=== PATIENT | female | born 1960 | race African-American/Black ===

== ENCOUNTER 2016-05-19 12:59 | Inpatient (IN) | payer MEDICAID, OTHER ==
[~2016-05-19] VITALS: Ht 160 cm; Wt 109.8 kg
[~2016-05-19 12:59] MED LIST: ALLOPURINOL100 M1 ORAL; AMOX TR-K CLV1 EAC2 ORAL; ASPIR 8181 MG ORAL; AZITHROMYCIN250 MG ORAL; CARISOPRODOL350 MG ORAL; HYDROCHLOROTHIA25 MG ORAL; OMEPRAZOLE40 M1 ORAL; PHENERGAN6.25 MG/5 ORAL; POTASSIUM CHLOR8 ME3 PO; REGLAN10 MG PO; VICODIN 5-5001 EACH PO; ZANTAC150 MG ORAL
[2016-05-19] MEDS ORDERED: ZYPREXA2.5 MG ORAL (13:14)
[2016-05-19] MEDS ORDERED: HYDROXYZINE HCL10 M1 PO (13:16)
[2016-05-19 13:20] VITALS: BP 125/92
[2016-05-19] MEDS ORDERED: Albuterol ud Inhalation HHN ONE (13:30)
[2016-05-19] MEDS ORDERED: Norco 10mg/325mg tab ORAL ONE (13:30)
--- NOTE | 2016-05-19 13:34 | Emergency Room Report ---
History of Present Illness General Chief Complaint: Dyspnea/Respdistress Source: Patient Present Illness HPI Patient present with a few different complaints Main complaint was of cough and congestion Patient feel that she has been wheezing over the past several days Complaining of increased swelling in both of her feet Denies any headache or visual changes Denies any chest pain at this time She states that she takes aspirin and nitroglycerin at home when necessary Patient also complains of a chronic low back pain However complains of increased foul smell of her urine as well Allergies: Coded Allergies: No Known Allergies (Verified , 12/23/09) Patient History Past Medical History: see triage record Pertinent Family History: none Reviewed Nursing Documentation: PMH: Agreed, PSxH: Agreed Nursing Documentation-PMH Past Medical History: No History, Except For Hx Cardiac Problems: Yes - heart problem, angina, Gout Hx Hypertension: Yes Hx Gastrointestinal Problems: Yes - Hep c Review of Systems All Other Systems: negative except mentioned in HPI Physical Exam Vital Signs Date Time Temp Pulse Resp B/P Pulse Ox O2 Delivery O2 Flow Rate FiO2 05/19/16 13:08 98.4 95 20 163/95 94 Room Air Sp02 EP Interpretation: reviewed, normal General Appearance: no apparent distress Head: normocephalic, atraumatic Eyes: bilateral eye EOMI, bilateral eye PERRL ENT: hearing grossly normal, normal pharynx, TMs + canals normal, uvula midline Neck: full range of motion, supple, no meningismus, no bony tend Respiratory: no respiratory distress, no retraction, no accessory muscle use, crackles - And wheezing in both lower lobes Cardiovascular #1: normal peripheral pulses, regular rate, rhythm, no gallop, no JVD, no murmur Gastrointestinal: normal bowel sounds, non tender, soft, no mass, no organomegaly, non-distended, no guarding, no hernia, no pulsatile mass, no rebound Genitourinary: no CVA tenderness Musculoskeletal: normal inspection Neurologic: oriented x3, responsive, lace finisher III-XII nml as tested, motor strength/ tone normal, sensory intact Psychiatric: mood/affect normal Skin: warm/dry, palpation normal, other - 2/4 pitting Edema in both lower extremities Lymphatic: normal inspection, no adenopathy Medical Decision Making Last Vital Signs Date Time Temp Pulse Resp B/P Pulse Ox O2 Delivery O2 Flow Rate FiO2 05/19/16 13:08 98.4 95 20 163/95 94 Room Air Reevaluation Impression Patient continues to do better in the ER, case was signed out to my oncoming physician for final dispo LIGIA HERNANDEZ D.O. May 19, 2016 13:34
[2016-05-19 13:58] LABS: MEAN CORPUSCULAR HEMOGLOBIN 19.7 PG (27.0-31.0); MEAN CORPUSCULAR HGB CONC 28.6 G/DL (32.0-36.0); MEAN CORPUSCULAR VOLUME 69 FL (80-99); MEAN PLATELET VOLUME 5.4 FL (6.5-10.1); PLATELET COUNT 415 K/UL (150-450); RED BLOOD COUNT 4.84 M/UL (4.20-5.40); RED CELL DISTRIBUTION WIDTH 17.4 % (11.6-14.8); WHITE BLOOD COUNT 5.8 K/UL (4.8-10.8)
[2016-05-19 14:13] LABS: TROPONIN I < 0.30 ng/mL (<=0.30)
[2016-05-19 14:14] LABS: ALANINE AMINOTRANSFERASE 23 U/L (3-33); ANION GAP 16 (5-15); ASPARTATE AMINO TRANSFERASE 41 U/L (5-40); CARBON DIOXIDE 26 mEQ/L (20-30); CHLORIDE 99 mEQ/L (98-107); GLOMERULAR FILTRATION RATE > 60 mL/min (>60); HEMOLYSIS 6; LIPASE 32 U/L (< 60); POTASSIUM 4.1 mEQ/L (3.4-4.9); SODIUM 141 mEQ/L (135-145); TOTAL PROTEIN 6.9 g/dL (6.6-8.7)
[2016-05-19 14:17] LABS: ANISOCYTOSIS 1+; BAND NEUTROPHILS % (MANUAL) 1 % (0-8); BASOPHILS % (MANUAL) 0 % (0-2); EOSINOPHILS % (MANUAL) 1 % (0-3); HYPOCHROMASIA 2+; LYMPHOCYTES % (MANUAL) 29 % (20-45); MICROCYTES 2+; NEUTROPHILS % (MANUAL) 57 % (45-75); NUCLEATED RED BLOOD CELLS 1 /100 WBC; PLATELET ESTIMATE ADEQUATE; PLATELET MORPHOLOGY NORMAL; TOTAL CELLS COUNTED 100
[2016-05-19 14:17] LABS: APPEARANCE,URINE CLEAR; KETONES,URINE NEGATIVE (NEGATIVE); LEUKOCYTE ESTERASE ,URINE NEGATIVE (NEGATIVE); NITRITE,URINE NEGATIVE (NEGATIVE); PH,URINE 7 (4.5-8.0); PROTEIN,URINE 1+ (NEGATIVE); UROBILINOGEN,URINE NORMAL MG/DL (0.0-1.0)
[2016-05-19 14:20] LABS: TARGET CELLS RARE
[2016-05-19 14:21] LABS: POLYCHROMASIA OCCASIONAL
[2016-05-19 14:24] LABS: CKMB 4.6 ng/mL (< 3.8)
[2016-05-19 14:27] LABS: BACTERIA,URINE FEW /HPF; SQUAMOUS EPITHELIAL CELL,UR FEW /LPF (NONE/OCC); WBC,URINE 0-2 /HPF (0 - 2)
[2016-05-19 15:28] VITALS: BP 149/85
[2016-05-19] MEDS ORDERED: DuoNeb 0.5-3(2.5)mg/3ml neb HHN PRN (16:30)
[2016-05-19] MEDS ORDERED: Miralax 17gm pkt ORAL PRN (16:30)
[2016-05-19 17:44] VITALS: BP 146/89
[2016-05-19] MEDS ORDERED: Ketorolac 30mg Inj IV PRN (18:30)
[2016-05-19] MEDS: Ketorolac 30mg Inj IV PRN (19:47)
[2016-05-19 20:00] VITALS: BP 128/70
[2016-05-19] MEDS: Heparin 5000 units/ml inj SUBQ SCH (22:14)
[2016-05-19 22:51] LABS: TROPONIN I < 0.30 ng/mL (<=0.30)
[2016-05-20] VITALS: BP 142/68
[2016-05-20] MEDS: Ketorolac 30mg Inj IV PRN ×4 (02:31→22:13)
[2016-05-20 04:00] VITALS: BP 159/94
[2016-05-20 07:27] LABS: ANION GAP 13 (5-15); CALCIUM 8.7 mg/dL (8.6-10.2); CARBON DIOXIDE 29 mEQ/L (20-30); CHLORIDE 103 mEQ/L (98-107); CREATININE 0.9 mg/dL (0.5-0.9); GLOMERULAR FILTRATION RATE > 60 mL/min (>60); HEMOLYSIS 0; PHOSPHORUS 4.1 mg/dL (2.5-4.8); POTASSIUM 3.9 mEQ/L (3.4-4.9); SODIUM 145 mEQ/L (135-145)
[2016-05-20 07:29] LABS: TROPONIN I < 0.30 ng/mL (<=0.30)
[2016-05-20 07:35] LABS: BASOPHILS % (AUTO) 2.9 % (0.0-2.0); EOSINOPHILS % (AUTO) 4.5 % (0.0-3.0); LYMPHOCYTES % (AUTO) 34.6 % (20.0-45.0); MEAN CORPUSCULAR HEMOGLOBIN 20.1 PG (27.0-31.0); MEAN CORPUSCULAR HGB CONC 29.5 G/DL (32.0-36.0); MEAN CORPUSCULAR VOLUME 68 FL (80-99); MEAN PLATELET VOLUME 5.6 FL (6.5-10.1); MONOCYTES % (AUTO) 18.4 % (1.0-10.0); NEUTROPHILS % (AUTO) 39.7 % (45.0-75.0); PLATELET COUNT 401 K/UL (150-450); RED BLOOD COUNT 4.71 M/UL (4.20-5.40); RED CELL DISTRIBUTION WIDTH 17.7 % (11.6-14.8); WHITE BLOOD COUNT 5.9 K/UL (4.8-10.8)
[2016-05-20 08:00] VITALS: BP 137/56
[2016-05-20] MEDS: Allopurinol 100mg Tab ORAL SCH (08:32)
[2016-05-20] MEDS: Heparin 5000 units/ml inj SUBQ SCH ×2 (08:33→22:16)
[2016-05-20 11:25] VITALS: BP 158/89
--- NOTE | 2016-05-20 12:23 | Cardiology Report ---
APPROVED REPORT EKG Measurement Heart [id number] HI [id number] Normal sinus rhythm Possible Left atrial enlargement Nonspecific intraventricular block T wave abnormality, consider inferior ischemia Abnormal ECG
--- NOTE | 2016-05-20 13:42 | History and Physical ---
History of Present Illness General Date patient seen: May 20, 2016 Reason for Hospitalization: Dyspnea/Respdistress Present Illness HPI 55 year old female with hx of ETOH, COPD, morbid obesity presented with cough and congestion Patient feel that she has been wheezing over the past several days Complaining of increased swelling in both of her feet Patient also complains of a chronic low back pain. She is admitted for acute exacerbation of her CHF. Allergies: Coded Allergies: No Known Allergies (Verified , 12/23/09) Medication History Scheduled Allopurinol* (Allopurinol*), 100 MG ORAL DAILY, (Reported) Amoxicillin/Potassium Clav 875-125 Mg Tab* (Amox Tr-K Clv 875-125 Mg Tab*), 1 TAB ORAL EVERY 12 HOURS, (Reported) Aspirin* (Aspir 81*), 81 MG ORAL DAILY, (Reported) Azithromycin* (Zithromax*), 250 MG ORAL DAILY Hydrochlorothiazide* (Hydrochlorothiazide*), 25 MG ORAL DAILY, (Reported) Hydrocodone/Acetaminophen 5-500 (Vicodin 5-500), 1 TAB PO Q8H Hydroxyzine Hcl (Hydroxyzine Hcl), 10 MG PO EVERY 8 HOURS, (Reported) Metoclopramide Hcl* (Reglan*), 10 MG PO FOUR TIMES A DAY, (Reported) Omeprazole (Omeprazole), 40 MG ORAL DAILY Potassium Chloride (Potassium Chloride), 8 MEQ PO DAILY, (Reported) Ranitidine Hcl* (Zantac*), 150 MG ORAL DAILY Scheduled PRN Carisoprodol* (Carisoprodol*), 350 MG ORAL BID PRN, (Reported) Promethazine/Dextromethorphan (Promethazine-Dm Syrup), 1 TSP ORAL Q8HR PRN for For Cough Patient History Healthcare decision maker Resuscitation status Full Code Advanced Directive on File Past Medical/Surgical History Past Medical/Surgical History: (1) CHF (congestive heart failure) (2) Gastritis Review of Systems All Other Systems: negative except mentioned in HPI Physical Exam General Appearance: WD/WN Lines, tubes and drains: peripheral, central line HEENT: normocephalic Neck: non-tender, normal alignment Respiratory/Chest: rhonchi - left, rhonchi - right Cardiovascular/Chest: normal peripheral pulses, normal rate, regular rhythm, regularly irregular Genitourinary/Rectal: normal genital exam Extremities: normal range of motion, non-tender, normal inspection Last 24 Hour Vital Signs Date Time Temp Pulse Resp B/P Pulse Ox O2 Delivery O2 Flow Rate FiO2 05/20/16 11:25 96.1 94 18 158/89 97 Room Air 05/20/16 08:00 94.6 90 18 137/56 96 Room Air 05/20/16 04:00 98.3 94 18 159/94 95 Room Air 05/20/16 00:00 98.6 86 19 142/68 94 Room Air 05/19/16 20:00 97.7 93 18 128/70 97 Room Air 05/19/16 17:44 98.2 94 18 146/89 95 Room Air 05/19/16 17:17 98.5 89 20 149/85 96 Room Air 95 05/19/16 15:28 98.5 95 20 149/85 96 Room Air 05/19/16 14:38 98.5 05/19/16 14:18 92 21 99 Room Air 05/19/16 14:16 88 20 98 Room Air 05/19/16 14:15 88 20 Room Air Intake and Output 05/19/16 05/20/16 18:59 06:59 Intake Total 450 ml Output Total 500 ml 800 ml Balance -500 ml -350 ml Intake Oral 450 ml Output Urine Total 500 ml 800 ml # Voids 1 10 # Bowel Movements 3 Laboratory Tests Test 05/19/16 13:40 05/19/16 14:07 05/19/16 22:25 05/20/16 06:15 White Blood Count 5.8 K/UL (4.8-10.8) 5.9 K/UL (4.8-10.8) Red Blood Count 4.84 M/UL (4.20-5.40) 4.71 M/UL (4.20-5.40) Hemoglobin 9.5 G/DL (12.0-16.0) L 9.5 G/DL (12.0-16.0) L Hematocrit 33.3 % (37.0-47.0) L 32.2 % (37.0-47.0) L Mean Corpuscular Volume 69 FL (80-99) L 68 FL (80-99) L Mean Corpuscular Hemoglobin 19.7 PG (27.0-31.0) L 20.1 PG (27.0-31.0) L Mean Corpuscular Hemoglobin Concent 28.6 G/DL (32.0-36.0) L 29.5 G/DL (32.0-36.0) L Red Cell Distribution Width 17.4 % (11.6-14.8) H 17.7 % (11.6-14.8) H Platelet Count 415 K/UL (150-450) 401 K/UL (150-450) Mean Platelet Volume 5.4 FL (6.5-10.1) L 5.6 FL (6.5-10.1) L Neutrophils (%) (Auto) % (45.0-75.0) 39.7 % (45.0-75.0) L Lymphocytes (%) (Auto) % (20.0-45.0) 34.6 % (20.0-45.0) Monocytes (%) (Auto) % (1.0-10.0) 18.4 % (1.0-10.0) H Eosinophils (%) (Auto) % (0.0-3.0) 4.5 % (0.0-3.0) H Basophils (%) (Auto) % (0.0-2.0) 2.9 % (0.0-2.0) H Differential Total Cells Counted 100 Neutrophils % (Manual) 57 % (45-75) Lymphocytes % (Manual) 29 % (20-45) Monocytes % (Manual) 12 % (1-10) H Eosinophils % (Manual) 1 % (0-3) Basophils % (Manual) 0 % (0-2) Band Neutrophils 1 % (0-8) Nucleated Red Blood Cells 1 /100 WBC Platelet Estimate Adequate Platelet Morphology Normal Polychromasia Occasional Hypochromasia 2+ Anisocytosis 1+ Microcytosis 2+ Target Cells Rare Sodium Level 141 mEQ/L (135-145) 145 mEQ/L (135-145) Potassium Level 4.1 mEQ/L (3.4-4.9) 3.9 mEQ/L (3.4-4.9) Chloride Level 99 mEQ/L (98-107) 103 mEQ/L (98-107) Carbon Dioxide Level 26 mEQ/L (20-30) 29 mEQ/L (20-30) Anion Gap 16 (5-15) H 13 (5-15) Blood Urea Nitrogen 12 mg/dL (7-23) 12 mg/dL (7-23) Creatinine 1.0 mg/dL (0.5-0.9) H 0.9 mg/dL (0.5-0.9) Estimat Glomerular Filtration Rate > 60 mL/min (>60) > 60 mL/min (>60) Glucose Level 105 mg/dL (74-106) 90 mg/dL (74-106) Calcium Level 9.0 mg/dL (8.6-10.2) 8.7 mg/dL (8.6-10.2) Total Bilirubin 0.4 mg/dL (0.0-1.2) Aspartate Amino Transf (AST/SGOT) 41 U/L (5-40) H Alanine Aminotransferase (ALT/SGPT) 23 U/L (3-33) Alkaline Phosphatase 97 U/L (35-104) Total Creatine Kinase 123 U/L (26-140) Creatine Kinase MB 4.6 ng/mL (< 3.8) H Creatine Kinase MB Relative Index 3.7 Troponin I < 0.30 ng/mL (<=0.30) < 0.30 ng/mL (<=0.30) < 0.30 ng/mL (<=0.30) Pro-B-Type Natriuretic Peptide 6499 pg/mL (0-125) H Total Protein 6.9 g/dL (6.6-8.7) Albumin 3.5 g/dL (3.5-5.2) 3.2 g/dL (3.5-5.2) L Globulin 3.4 g/dL Albumin/Globulin Ratio 1.0 (1.0-2.7) Lipase 32 U/L (< 60) Urine Color Pale yellow Urine Appearance Clear Urine pH 7 (4.5-8.0) Urine Specific [place] 1.010 (1.005-1.035) Urine Protein 1+ (NEGATIVE) H Urine Glucose (UA) Negative (NEGATIVE) Urine Ketones Negative (NEGATIVE) Urine Occult Blood 3+ (NEGATIVE) H Urine Nitrite Negative (NEGATIVE) Urine Bilirubin Negative (NEGATIVE) Urine Urobilinogen Normal MG/DL (0.0-1.0) Urine Leukocyte Esterase Negative (NEGATIVE) Urine RBC 5-10 /HPF (0 - 2) H Urine WBC 0-2 /HPF (0 - 2) Urine Squamous Epithelial Cells Few /LPF (NONE/OCC) Urine Bacteria Few /HPF (NONE) Phosphorus Level 4.1 mg/dL (2.5-4.8) Height (Feet): 5 Height (Inches): 3.00 Weight (Pounds): 242 Medications Current Medications Medications (Trade) Dose Ordered Sig/Florencio Route PRN Reason Start Time Stop Time Status Last Admin Dose Admin Acetaminophen (Tylenol) 650 mg Q4H PRN ORAL Fever 05/19/16 16:30 06/18/16 16:29 Albuterol/ Ipratropium (DuoNeb 0.5-3(2.5)mg/3ml) 3 ml EVERY 4 HOURS PRN HHN Shortness of Breath 05/19/16 16:30 05/24/16 16:29 Allopurinol (Zyloprim) 100 mg DAILY ORAL 05/20/16 09:00 06/19/16 08:59 05/20/16 08:32 Carisoprodol (Soma) 350 mg BID PRN ORAL muslce spasm 05/19/16 16:30 06/18/16 16:29 05/20/16 04:39 Dextrose (Dextrose 50%) STAT PRN IV Hypoglycemia 05/19/16 16:30 06/18/16 16:29 Furosemide (Lasix) 40 mg EVERY 8 HOURS IV 05/19/16 22:00 06/18/16 21:59 05/20/16 06:15 Heparin Sodium (Porcine) (Heparin 5000 units/ml) 5,000 units EVERY 12 HOURS SUBQ 05/19/16 21:00 06/18/16 20:59 05/20/16 08:33 Ketorolac Tromethamine (Toradol 30mg) 15 mg Q6H PRN IV For Pain 05/20/16 00:30 05/25/16 00:29 05/20/16 08:33 Ondansetron HCl (Zofran) 4 mg Q6H PRN IVP Nausea & Vomiting 05/19/16 16:30 06/18/16 16:29 Polyethylene Glycol (Miralax) 17 gm DAILYPRN PRN ORAL Constipation 05/19/16 16:30 06/18/16 16:29 Temazepam (Restoril) 15 mg HSPRN PRN ORAL Insomnia 05/19/16 16:30 05/26/16 16:29 Assessment/Plan Problem List: (1) Respiratory distress ICD Codes: R06.00 - Dyspnea, unspecified SNOMED: 569654092 (2) CHF (congestive heart failure) ICD Codes: I50.9 - Heart failure, unspecified SNOMED: 18691912 (3) bronchitis Assessment/Plan echo diuretics respiratory treatment check electrolytes might go home after Cardiology evaluation, if cleared. JOSE ARVIZU May 20, 2016 13:42
--- NOTE | 2016-05-20 13:52 | Diagnostic Imaging Report ---
Indication: DYSPNEA Technique: One view of the chest Comparison: 05/19/2016 Findings: The heart remains enlarged. No definite acute infiltrates, effusions, or congestion. No significant interim change Impression: Cardiomegaly. No acute process
[2016-05-20 14:27] LABS: OTHERS PATHOLOGIST COMMENT
[2016-05-20 16:00] VITALS: BP 106/69
[2016-05-20 20:00] VITALS: BP 155/99
--- NOTE | 2016-05-20 21:00 | Cardiology Progress Note ---
Assessment/Plan Assessment/Plan chf exacerbation systolic dysfunction diastolic dysfunction anemia hx of hep c hxof sciatic need acei diuretic bb if nto contraindicated echo [id number] Objective Last 24 Hour Vital Signs Date Time Temp Pulse Resp B/P Pulse Ox O2 Delivery O2 Flow Rate FiO2 05/20/16 16:00 97.9 91 21 106/69 100 Nasal Cannula 2.0 05/20/16 11:25 96.1 94 18 158/89 97 Room Air 05/20/16 08:00 94.6 90 18 137/56 96 Room Air 05/20/16 04:00 98.3 94 18 159/94 95 Room Air 05/20/16 00:00 98.6 86 19 142/68 94 Room Air Intake and Output 05/19/16 05/20/16 19:00 07:00 Intake Total 450 ml Output Total 500 ml 800 ml Balance -500 ml -350 ml Intake Oral 450 ml Output Urine Total 500 ml 800 ml # Voids 1 10 # Bowel Movements 3 Laboratory Tests Test 05/19/16 22:25 05/20/16 06:15 Troponin I < 0.30 ng/mL (<=0.30) < 0.30 ng/mL (<=0.30) White Blood Count 5.9 K/UL (4.8-10.8) Red Blood Count 4.71 M/UL (4.20-5.40) Hemoglobin 9.5 G/DL (12.0-16.0) L Hematocrit 32.2 % (37.0-47.0) L Mean Corpuscular Volume 68 FL (80-99) L Mean Corpuscular Hemoglobin 20.1 PG (27.0-31.0) L Mean Corpuscular Hemoglobin Concent 29.5 G/DL (32.0-36.0) L Red Cell Distribution Width 17.7 % (11.6-14.8) H Platelet Count 401 K/UL (150-450) Mean Platelet Volume 5.6 FL (6.5-10.1) L Neutrophils (%) (Auto) 39.7 % (45.0-75.0) L Lymphocytes (%) (Auto) 34.6 % (20.0-45.0) Monocytes (%) (Auto) 18.4 % (1.0-10.0) H Eosinophils (%) (Auto) 4.5 % (0.0-3.0) H Basophils (%) (Auto) 2.9 % (0.0-2.0) H Sodium Level 145 mEQ/L (135-145) Potassium Level 3.9 mEQ/L (3.4-4.9) Chloride Level 103 mEQ/L (98-107) Carbon Dioxide Level 29 mEQ/L (20-30) Anion Gap 13 (5-15) Blood Urea Nitrogen 12 mg/dL (7-23) Creatinine 0.9 mg/dL (0.5-0.9) Estimat Glomerular Filtration Rate > 60 mL/min (>60) Glucose Level 90 mg/dL (74-106) Calcium Level 8.7 mg/dL (8.6-10.2) Phosphorus Level 4.1 mg/dL (2.5-4.8) Albumin 3.2 g/dL (3.5-5.2) JENNIFER ZAPATA May 20, 2016 21:00
[2016-05-20] MEDS ORDERED: Lisinopril 10mg tab ORAL SCH (21:30)
[2016-05-21] VITALS: BP 130/82
--- NOTE | 2016-05-21 00:49 | Consultation ---
DATE OF CONSULTATION: 05/20/2016 CARDIOLOGY CONSULTATION CONSULTING PHYSICIAN: Vargas Finney M.D. REFERRING PHYSICIAN: Festus Beavers M.D. REASON FOR REFERRAL: Shortness of breath. HISTORY OF PRESENT ILLNESS: This is a 55-year-old female with history of multiple medical problems, who presented with shortness of breath indicates she has had some shortness of breath for long time and problem with sleeping because of shortness of breath at times. She sleeps in a sitting position at times in bed. She has had shortness of breath on exertion. She has leg edema. She has no real chest pains at this time, although she has had intermittently and she gets mentally altered and she takes nitroglycerin. She has had palpitations. PAST MEDICAL HISTORY: Negative for diabetes. Positive for high blood pressure. No heart attack. No cancer. No stroke. She has history of hepatitis C. No ulcers. No kidney problems. She has asthma. No emphysema. No ulcers. No liver problems or thyroid problems. She is having anemia. She has arthritis and gout as well. ALLERGIES: She is not allergic to any medications. SOCIAL HISTORY: She used to smoke and drink and use drugs, not any more. REVIEW OF SYSTEMS: Gastrointestinal: She has diarrhea and constipation. Genitourinary: Denies frequent urination. Pulmonary: Positive coughing and wheezing. Constitutional: She has had some fevers previously. PHYSICAL EXAMINATION: GENERAL: Shows an obese middle-aged female, in no respiratory distress. NECK: Supple. No jugular venous distention. LUNGS: Decreased breath sounds are noted bilaterally. CARDIAC: Regular rhythm. No heaves or thrills noted. ABDOMEN: Soft and nontender. Positive bowel sounds. EXTREMITIES: There is 1+ to 2+ edema of the lower extremities. NEUROLOGIC: She is awake, alert, responsive, and in no apparent respiratory distress. IMAGING: Chest x-ray shows cardiomegaly. Otherwise, no acute processes. LABORATORY VALUES: White count of 5.9 with hemoglobin 9.5 and a platelet count of 401,000. Sodium is 145, potassium 3.9, chloride 103, bicarbonate 29, BUN 12, creatinine 0.9, glucose of 90, calcium is 8.7 and phosphorus is 4.1. Troponin on three separate occasions has been negative. ProBNP is 6400. Coags are not drawn. The preliminary echocardiogram shows ejection fraction of 30% to 35%. Final report is pending at this time. There is moderate mitral regurgitation, pseudo normalized LV systolic function, and ejection fraction is 30 to 35%. ASSESSMENT: 1. Probable congestive heart failure. 2. Asthma. 3. Obesity. 4. History of hypertension. 5. History of sciatica. 6. History of gout. 7. Anemia. PLAN: Dr. Beavers, this patient was seen in cardiac consultation. Vargas Finney M.D. DR: SELVIN JOB#: [id number] CC:
[2016-05-21 04:00] VITALS: BP 126/80
[2016-05-21] MEDS: Ketorolac 30mg Inj IV PRN (06:22)
[2016-05-21 07:03] LABS: TROPONIN I < 0.30 ng/mL (<=0.30)
[2016-05-21 08:00] VITALS: BP 145/60
--- NOTE | 2016-05-21 09:29 | Cardiology Progress Note ---
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 some swma and decrease in ef as well d/w pt about lv dysfunction and need to watch na dn fluid intake her sx have been on going for a long time all trop neg will need outpt fu with pmd for further maria Subjective Cardiovascular: Denies: chest pain, irregular heart rate, lightheadedness Respiratory: Denies: orthopnea, shortness of breath Gastrointestinal/Abdominal: Denies: abdominal pain Genitourinary: Denies: burning Subjective want to go to smoke refusing tele per rn Objective Last 24 Hour Vital Signs Date Time Temp Pulse Resp B/P Pulse Ox O2 Delivery O2 Flow Rate FiO2 05/21/16 04:00 97.2 90 18 126/80 97 Room Air 05/21/16 00:00 98.0 94 20 130/82 95 Nasal Cannula 2.0 05/20/16 22:14 88 146/74 05/20/16 22:14 146/74 05/20/16 20:00 97.8 95 21 155/99 98 Room Air 05/20/16 16:00 97.9 91 21 106/69 100 Nasal Cannula 2.0 05/20/16 11:25 96.1 94 18 158/89 97 Room Air General Appearance: alert, obese Neck: supple Cardiovascular: normal rate, regular rhythm Respiratory/Chest: lungs clear Abdomen: normal bowel sounds, non tender, soft Extremities: no swelling Intake and Output 05/20/16 05/21/16 19:00 07:00 Intake Total 640 ml 540 ml Output Total 1200 ml 800 ml Balance -560 ml -260 ml Intake Oral 640 ml 540 ml Output Urine Total 1200 ml 800 ml # Voids 4 Laboratory Tests Test 05/21/16 05:55 Troponin I < 0.30 ng/mL (<=0.30) Microbiology Date/Time Source Procedure Growth Status 05/19/16 13:40 Blood Blood Culture - Preliminary NO GROWTH AFTER 24 HOURS Resulted 05/19/16 13:22 Blood Blood Culture - Preliminary NO GROWTH AFTER 24 HOURS Resulted JENNIFER CANCHOLA May 21, 2016 09:29
[2016-05-21 09:38] VITALS: BP 126/80
[2016-05-21] MEDS: Allopurinol 100mg Tab ORAL SCH (09:38)
[2016-05-21] MEDS ORDERED: Furosemide 40mg tab ORAL SCH (09:45)
[2016-05-21] MEDS: Heparin 5000 units/ml inj SUBQ SCH (09:48)
--- NOTE | 2016-05-21 12:22 | Pulmonology Progress Note ---
Assessment/Plan Problems: (1) Respiratory distress (2) CHF (congestive heart failure) (3) bronchitis Assessment/Plan improving dc home with oral diuretics Subjective ROS Limited/Unobtainable: No Constitutional: Reports: no symptoms HEENT: Repors: no symptoms Allergies: Coded Allergies: No Known Allergies (Verified , 12/23/09) Objective Last 24 Hour Vital Signs Date Time Temp Pulse Resp B/P Pulse Ox O2 Delivery O2 Flow Rate FiO2 05/21/16 09:38 90 126/80 05/21/16 08:00 98.1 86 18 145/60 95 Room Air 05/21/16 04:00 97.2 90 18 126/80 97 Room Air 05/21/16 00:00 98.0 94 20 130/82 95 Nasal Cannula 2.0 05/20/16 22:14 88 146/74 05/20/16 22:14 146/74 05/20/16 20:00 97.8 95 21 155/99 98 Room Air 05/20/16 16:00 97.9 91 21 106/69 100 Nasal Cannula 2.0 Intake and Output 05/20/16 05/21/16 19:00 07:00 Intake Total 640 ml 540 ml Output Total 1200 ml 800 ml Balance -560 ml -260 ml Intake Oral 640 ml 540 ml Output Urine Total 1200 ml 800 ml # Voids 4 Objective General Appearance: WD/WN Lines, tubes and drains: peripheral HEENT: normocephalic, atraumatic Neck: non-tender, normal alignment Respiratory/Chest: chest wall non-tender, Cardiovascular/Chest: normal peripheral pulses, normal rate Abdomen: normal bowel sounds, non tender Genitourinary/Rectal: normal genital exam Extremities: normal range of motion, non-tender, normal inspection, no calf tenderness, normal capillary refill Skin Exam: normal pigmentation Neurologic: panel assembler II-XII grossly normal Microbiology Date/Time Source Procedure Growth Status 05/19/16 13:40 Blood Blood Culture - Preliminary NO GROWTH AFTER 24 HOURS Resulted 05/19/16 13:22 Blood Blood Culture - Preliminary NO GROWTH AFTER 24 HOURS Resulted Laboratory Tests 05/21/16 05:55: Troponin I < 0.30 Current Medications Medications (Trade) Dose Ordered Sig/Florencio Route PRN Reason Start Time Stop Time Status Last Admin Dose Admin Acetaminophen (Tylenol) 650 mg Q4H PRN ORAL Fever 05/19/16 16:30 06/18/16 16:29 Albuterol/ Ipratropium (DuoNeb 0.5-3(2.5)mg/3ml) 3 ml EVERY 4 HOURS PRN HHN Shortness of Breath 05/19/16 16:30 05/24/16 16:29 Allopurinol (Zyloprim) 100 mg DAILY ORAL 05/20/16 09:00 06/19/16 08:59 05/21/16 09:38 Carisoprodol (Soma) 350 mg BID PRN ORAL muslce spasm 05/19/16 16:30 06/18/16 16:29 05/21/16 09:48 Carvedilol (Coreg) 3.125 mg EVERY 12 HOURS ORAL 05/20/16 21:30 06/19/16 21:29 05/21/16 09:38 Dextrose (Dextrose 50%) STAT PRN IV Hypoglycemia 05/19/16 16:30 06/18/16 16:29 Furosemide (Lasix) 40 mg DAILY ORAL 05/21/16 09:45 06/20/16 09:44 05/21/16 09:49 Heparin Sodium (Porcine) (Heparin 5000 units/ml) 5,000 units EVERY 12 HOURS SUBQ 05/19/16 21:00 06/18/16 20:59 05/21/16 09:48 Ketorolac Tromethamine (Toradol 30mg) 15 mg Q6H PRN IV For Pain 05/20/16 00:30 05/25/16 00:29 05/21/16 06:22 Lisinopril (Zestril) 10 mg DAILY ORAL 05/20/16 21:30 06/19/16 21:29 05/20/16 22:14 Ondansetron HCl (Zofran) 4 mg Q6H PRN IVP Nausea & Vomiting 05/19/16 16:30 06/18/16 16:29 Polyethylene Glycol (Miralax) 17 gm DAILYPRN PRN ORAL Constipation 05/19/16 16:30 06/18/16 16:29 Temazepam (Restoril) 15 mg HSPRN PRN ORAL Insomnia 05/19/16 16:30 05/26/16 16:29 JOSE ARVIZU May 21, 2016 12:22
--- NOTE | 2016-05-21 12:56 | Diagnostic Imaging Report ---
Indication: SOB, cough Technique: One view of the chest Comparison: 05/27/2013 Findings: Body habitus limits evaluation. The heart is enlarged. No definite acute infiltrates, effusions or congestion. No significant change Impression: Cardiomegaly. No definite acute process This agrees with the preliminary interpretation provided by the emergency room physician
--- NOTE | 2016-05-21 12:56 | Cardiology Report ---
APPROVED REPORT EXAM: Two-dimensional and M-mode echocardiogram with Doppler and color Doppler. INDICATION Left Ventricular Function M-Mode DIMENSIONS IVSd1.2 (0.7-1.1cm)Left Atrium (MM)4.9 (1.6-4.0cm) LVDd6.0 (3.5-5.6cm)Aortic Root2.8 (2.0-3.7cm) PWd1.3 (0.7-1.1cm)Aortic Cusp Exc.1.7 (1.5-2.0cm) LVDs4.8 (2.5-4.0cm) PWs2.0 cm Global LV hypokinesis with distal septal and apical akinesis. Left ventricular ejection fraction estimated to be 30-35% %. Mild left ventricular hypertrophy. No evidence of pericardial fat or effusion. Mild bi-atrial enlargement. Mild left ventricular enlargement. Right ventricular chamber size is within normal limits. Mild focal aortic valve sclerosis with adequate cusp excursion. Mildly thickened mitral valve leaflets with normal excursion. Mild mitral annulus and aortic root calcification. Pulmonic valve not well visualized. Normal tricuspid valve structure. IVC dilated at 2.5 cm with minimal physiologic collapse, estimated RAP is 15 mmHg. A color flow and spectral Doppler study was performed and revealed: No aortic regurgitation. Moderate mitral regurgitation. Mitral inflow velocities indicates possible pseudo normalization pattern implying significant left ventricular diastolic dysfunction (Grade II). Mild tricuspid regurgitation. Tricuspid systolic velocities suggests peak right ventricular systolic pressure of 59 mmHg, consistent with moderate pulmonary hypertension. Mild pulmonic regurgitation present.
[2016-05-22] MEDS ORDERED: Furosemide 40mg tab ORAL SCH (09:00)
--- NOTE | 2016-05-23 11:15 | Discharge Summary ---
Discharge Summary Hospital Course Date of Admission May 19, 2016 at 15:20 Date of Discharge May 21, 2016 at 12:30 Admitting Diagnosis acute chf HPI Angella Mora is a 55 year old female who was admitted on May 19, 2016 at 15:20 for Acute Coronary Syndrome Hospital Course [id number] Discharge Discharge Disposition Patient was discharged to Home (01) Discharge Diagnoses: Ashly Ventura NP May 23, 2016 11:15
--- NOTE | 2016-05-23 22:00 | Discharge Summary 2 SIG ---
DATE OF ADMISSION: 05/19/2016 DATE OF DISCHARGE: 05/21/2016 [employer]: Vargas Finney M.D. BRIEF HOSPITAL COURSE: The patient is a 55-year-old female with history of EtOH, COPD, and morbid obesity, presented to ED with cough and congestion and has been wheezing for the past several days. Complaining of increased swelling on both feet. She was admitted for acute exacerbation of CHF. Dr. Finney was consulted. ProBNP was 6400 and troponins were negative x3. Echocardiogram done showed ejection fraction of 30% to 35% with moderate mitral regurgitation and global left ventricular hypokinesis. The patient was given ADELITA inhibitor with lisinopril 10 mg daily and was given diuretics. She was started on Coreg 3.125 mg b.i.d. and was advised she need to watch sodium intake. She was eventually discharged home on oral diuretics. FINAL DIAGNOSES: 1. Acute on chronic systolic diastolic congestive heart failure in exacerbation. 2. Anemia. 3. Respiratory distress. 4. Bronchitis. 5. Sciatica. 6. History of hepatitis C. Festus Beavers M.D. I have been assigned to dictate discharge summary on this account and I was not involved in the patient's management. Ashly Ventura N.P. DR: ESTEFANI JOB#: [id number] CC: JAMIE
== END 2016-05-21 12:30 | disposition home or self-care (01) | DRG 194 ==
LOC: EMR 13:42 → 2E 15:20 → EDBEDREQ 16:26
DX: I50.43 Acute on chronic combined systolic (congestive) and diastolic (congestive) heart failure (principal); J44.0 Chronic obstructive pulmonary disease with (acute) lower respiratory infection; Z68.41 Body mass index [BMI] 40.0-44.9, adult; D64.9 Anemia, unspecified; J45.909 Unspecified asthma, uncomplicated; E66.01 Morbid (severe) obesity due to excess calories; J40 Bronchitis, not specified as acute or chronic; M54.30 Sciatica, unspecified side; B19.20 Unspecified viral hepatitis C without hepatic coma; I34.0 Nonrheumatic mitral (valve) insufficiency; I51.7 Cardiomegaly; M10.9 Gout, unspecified; Z87.19 Personal history of other diseases of the digestive system
CPT/HCPCS: 36415; 71010; 80048; 80053; 80069; 81003; 82550; 82553; 83690; 83880; 84484; 85007; 85025; 87040; 87081; 93005; 93306; 94640; 94664

== ENCOUNTER 2016-07-15 14:42 | Emergency (ER) | payer MEDICAID ==
[~2016-07-15] VITALS: Ht 165.1 cm; Wt 113.4 kg
[~2016-07-15 14:42] MED LIST changes: +HYDROXYZINE HCL10 M1 PO; +ZYPREXA2.5 MG ORAL
--- NOTE | 2016-07-15 14:46 | Emergency Room Report ---
History of Present Illness General Chief Complaint: Abdominal Pain Source: Patient Present Illness HPI 55 YO female presents to the ED c/o acute onset 9/10 in severity abdominal pain at site of previous hernia. pt. state she was attempting to get up off her seat and had acute onset of pain. Pt. reports pain is moderately relieved with application of firm pressure by her hands. pt. states not holding firm pressure exacerbates her pain. denies N/V/ F/C. denies Constipation or diarrhea. pt. reports 3 BM's per day, small in size, but solid non-soft/liquid stools. pt. reports multiple abdominal surgeries, and hx of sciatica, and chronic back pain. pt. also report hx of asthma, and is a current smoker. reports constant dry cough. denies CP. pt. reports sciatica of the left side.pt. is stating she is out of sciatica medication and requires refill of [place] and soma. pt. reports exacerbation of her sciatica as well rating her pain as 8 /10 in severity and shooting down the left posterior leg. denies incontinence, denies trauma or fall. Denies CP, Palpitations, LOC, AMS, dizziness, Changes in Vision , Sensation, paresthesias, or a sudden severe headache. Allergies: Coded Allergies: No Known Allergies (Verified , 12/23/09) Patient History Past Medical History: see triage record Past Surgical History: none Pertinent Family History: none Now: No Immunizations: UTD Reviewed Nursing Documentation: PMH: Agreed, PSxH: Agreed Nursing Documentation-PMH Hx Cardiac Problems: Yes Hx Hypertension: Yes Hx Asthma: Yes Hx Diabetes: No Hx Cancer: No Hx Headaches: Yes - migraines Hx Numbness: Yes - both legs Review of Systems All Other Systems: negative except mentioned in HPI Physical Exam Vital Signs Date Time Temp Pulse Resp B/P Pulse Ox O2 Delivery O2 Flow Rate FiO2 07/15/16 14:32 97.5 85 18 142/74 99 Room Air Sp02 EP Interpretation: reviewed, normal General Appearance: no apparent distress, alert, GCS 15, non-toxic Head: normocephalic, atraumatic Eyes: bilateral eye PERRL, bilateral eye normal inspection ENT: hearing grossly normal, normal pharynx, no angioedema, normal voice Neck: full range of motion, supple/symm/no masses Respiratory: lungs clear, normal breath sounds, speaking full sentences, wheezing Cardiovascular #1: regular rate, rhythm, no edema, normal capillary refill Gastrointestinal: non tender, soft, non-distended, no guarding, no rebound, other - hypoactive bowel sounds in all 4 quadrants, no appreciable abdominal ttp , difficult to palpate hernia, multiple surgical scars and abdominal defacement. no erythema or evidence to suggest infection/gangreen., overweight Rectal: deferred Genitourinary: normal inspection, no CVA tenderness Musculoskeletal: back normal, gait/station normal, normal range of motion, other - left sided lumbar spinal TTP, no midline TTP Neurologic: alert, oriented x3, responsive, motor strength/tone normal, sensory intact, normal gait, speech normal, other - Pt. has a walker, however walks with a steady gait. Psychiatric: judgement/insight normal, memory normal, mood/affect normal, no suicidal/homicidal ideation Skin: normal color, no rash, warm/dry, well hydrated Medical Decision Making PA Attestation Dr. Franco is my supervising Physician whom patient management has been discussed with. Diagnostic Impression: Primary Impression: Abdominal pain Qualified Codes: R10.10 - Upper abdominal pain, unspecified Additional Impression: History of sciatica ER Course Pt. presents to the ED c/o acute onset 9/10 in severity abdominal pain at site of previous hernia. pt. state she was attempting to get up off her seat and had acute onset of pain. Pt. reports pain is moderately relieved with application of firm pressure by her hands. pt. states not holding firm pressure exacerbates her pain. denies N/V/ F/C. denies Constipation or diarrhea. pt. reports 3 BM's per day, small in size, but solid non-soft/liquid stools. pt. reports multiple abdominal surgeries, and hx of sciatica, and chronic back pain. pt. also report hx of asthma, and is a current smoker. reports constant dry cough. denies CP. pt. reports sciatica of the left side.pt. is stating she is out of sciatica medication and requires refill of [place] and soma. pt. reports exacerbation of her sciatica as well rating her pain as 8 /10 in severity and shooting down the left posterior leg. denies incontinence, denies trauma or fall. Denies CP, Palpitations, LOC, AMS, dizziness, Changes in Vision, Sensation, paresthesias, or a sudden severe headache. Ddx considered but are not limited to Diverticulitis, acute appendicitis, non- reducible hernia, SBO, PUD, GE, pancreatitis, gallstone Vital signs: are WNL, pt. is afebrile H&PE are most consistent with acute abdominal pain, difficult to palpate hernia , abdomen has multiple surgical scars, PE does not suggest appendicitis. Pt. is obese. ORDERS: -CBC: unremarkable no evidence of acute infection, anemia is noted. -CMP: unremarkable other than mild elevation in AST of 46, and alk Phos of 114. - lipase: WNL - CT Abdomen and Pelvis with IV and Oral Contrast: pt. Declines imaging study. ED INTERVENTIONS: -- Toradol IM -Pt states with IM Toradol pain has improved to 2/10 in severity. DISPOSITION: Pt. Requests AMA. Pt does not want to have CT/Imaging performed. - At this time the patient is requesting to leave AGAINST MEDICAL ADVICE. I believe that this patient has the capacity to make decisions on Her own. I discussed with the patient the risks of leaving AMA. Some of these risks include delay in diagnosis and treatment, as well as worsening of symptoms, organ damage, and permanent disability or even . After discussing these risks with the patient. She continues to express Her want to leave AGAINST MEDICAL ADVICE. I encouraged the patient to return at any time, and that she will be welcome here in the emergency department to continue medical management. Labs Test 07/15/16 15:30 White Blood Count 6.7 K/UL (4.8-10.8) Red Blood Count 4.79 M/UL (4.20-5.40) Hemoglobin 10.4 G/DL (12.0-16.0) Hematocrit 34.3 % (37.0-47.0) Mean Corpuscular Volume 72 FL (80-99) Mean Corpuscular Hemoglobin 21.6 PG (27.0-31.0) Mean Corpuscular Hemoglobin Concent 30.3 G/DL (32.0-36.0) Red Cell Distribution Width 19.5 % (11.6-14.8) Platelet Count 272 K/UL (150-450) Mean Platelet Volume 6.0 FL (6.5-10.1) Neutrophils (%) (Auto) 47.3 % (45.0-75.0) Lymphocytes (%) (Auto) 36.0 % (20.0-45.0) Monocytes (%) (Auto) 12.9 % (1.0-10.0) Eosinophils (%) (Auto) 1.9 % (0.0-3.0) Basophils (%) (Auto) 1.9 % (0.0-2.0) Sodium Level 141 mEQ/L (135-145) Potassium Level 4.3 mEQ/L (3.4-4.9) Chloride Level 101 mEQ/L (98-107) Carbon Dioxide Level 29 mEQ/L (20-30) Anion Gap 11 (5-15) Blood Urea Nitrogen 13 mg/dL (7-23) Creatinine 0.8 mg/dL (0.5-0.9) Estimat Glomerular Filtration Rate > 60 mL/min (>60) Glucose Level 100 mg/dL (74-106) Calcium Level 9.3 mg/dL (8.6-10.2) Total Bilirubin 0.4 mg/dL (0.0-1.2) Aspartate Amino Transf (AST/SGOT) 46 U/L (5-40) Alanine Aminotransferase (ALT/SGPT) 27 U/L (3-33) Alkaline Phosphatase 115 U/L (35-104) Total Protein 7.7 g/dL (6.6-8.7) Albumin 3.5 g/dL (3.5-5.2) Globulin 4.2 g/dL Albumin/Globulin Ratio 0.8 (1.0-2.7) Lipase 26 U/L (< 60) Last Vital Signs Date Time Temp Pulse Resp B/P Pulse Ox O2 Delivery O2 Flow Rate FiO2 07/15/16 14:32 97.5 85 18 142/74 99 Room Air Disposition: AGAINST MEDICAL ADVICE Condition: Unknown Scripts Guaifenesin/Dextromethorphan (Robitussin Cough-Chest Dm Liq) 118 Ml Liquid 5 ML PO Q6HR for For Cough, #118 ML Prov: Cassidy Cho P.A. 07/15/16 Cyclobenzaprine Hcl* (FLEXERIL*) 10 Mg Tablet 10 MG ORAL THREE TIMES A DAY for 4 Days, #12 TAB Prov: Cassidy Cho P.A. 07/15/16 Albuterol Sulfate* (ALBUTEROL SULFATE MDI*) 8.5 Gm Hfa.aer.ad 2 PUFF INH Q3H, #1 INH 0 Refills Prov: Cassidy Cho 07/15/16 Patient Instructions: Abdominal Pain, Adult, Sciatica, [id number] Additional Instructions: Take medications as directed. Follow up with PCP in 3-5 days Return sooner to ED if new symptoms occur, or current symptoms become worse. Do not drink alcohol, drive, or operate heavy machinery while taking Flexeril as this may cause drowsiness. Although you are leaving against medical advice, and refusing full evaluation for your symptoms. We strongly encourage you to return to the emergency department at any time for continuation of your evaluation. - Please note that this Emergency Department Report was dictated using [employer] worker technology software, occasionally this can lead to erroneous entry secondary to interpretation by the dictation equipment. Cassidy Cho Jul 15, 2016 14:46
[2016-07-15] MEDS ORDERED: Ketorolac 60mg Inj IM ONE (15:15)
[2016-07-15] MEDS ORDERED: Albuterol ud Inhalation HHN ONE (15:30)
[2016-07-15 16:21] LABS: BASOPHILS % (AUTO) 1.9 % (0.0-2.0); EOSINOPHILS % (AUTO) 1.9 % (0.0-3.0); MEAN CORPUSCULAR HEMOGLOBIN 21.6 PG (27.0-31.0); MEAN CORPUSCULAR HGB CONC 30.3 G/DL (32.0-36.0); MEAN CORPUSCULAR VOLUME 72 FL (80-99); MONOCYTES % (AUTO) 12.9 % (1.0-10.0); NEUTROPHILS % (AUTO) 47.3 % (45.0-75.0); PLATELET COUNT 272 K/UL (150-450); RED BLOOD COUNT 4.79 M/UL (4.20-5.40); RED CELL DISTRIBUTION WIDTH 19.5 % (11.6-14.8); WHITE BLOOD COUNT 6.7 K/UL (4.8-10.8)
[2016-07-15 16:31] LABS: ALANINE AMINOTRANSFERASE 27 U/L (3-33); ALBUMIN/GLOBULIN RATIO 0.8 (1.0-2.7); ANION GAP 11 (5-15); ASPARTATE AMINO TRANSFERASE 46 U/L (5-40); CALCIUM 9.3 mg/dL (8.6-10.2); CARBON DIOXIDE 29 mEQ/L (20-30); CHLORIDE 101 mEQ/L (98-107); CREATININE 0.8 mg/dL (0.5-0.9); GLOMERULAR FILTRATION RATE > 60 mL/min (>60); HEMOLYSIS 0; LIPASE 26 U/L (< 60); POTASSIUM 4.3 mEQ/L (3.4-4.9); SODIUM 141 mEQ/L (135-145); TOTAL PROTEIN 7.7 g/dL (6.6-8.7)
[2016-07-15] MEDS ORDERED: ROBITUSSIN COU118 M4 PO (16:48)
[2016-07-15] MEDS ORDERED: ALBUTEROL SULF8.5 GM INH (16:48)
[2016-07-15] MEDS ORDERED: CYCLOBENZAPRINE10 MG ORAL (16:48)
[2016-07-15 16:55] VITALS: BP 142/74
== END 2016-07-15 16:55 | disposition left against medical advice (07) ==
LOC: EDBD 14:42 → EMR 14:59
DX: R10.9 Unspecified abdominal pain (principal); M54.30 Sciatica, unspecified side; G89.29 Other chronic pain; M54.9 Dorsalgia, unspecified; I10 Essential (primary) hypertension; J45.909 Unspecified asthma, uncomplicated
CPT/HCPCS: 36415; 80053; 83690; 85025; 94640; 94664; 96372; 99284

== ENCOUNTER 2016-08-05 18:11 | Emergency (ER) | payer MEDICAID, OTHER ==
[~2016-08-05] VITALS: Ht 160 cm; Wt 108.4 kg
[~2016-08-05 18:11] MED LIST changes: +ALBUTEROL SULF8.5 GM INH; +CYCLOBENZAPRINE10 MG ORAL; +ROBITUSSIN COU118 M4 PO
[2016-08-05 18:40] VITALS: BP 138/81
[2016-08-05] MEDS ORDERED: DuoNeb 0.5-3(2.5)mg/3ml neb HHN ONE (19:30)
[2016-08-05] MEDS ORDERED: Ketorolac 60mg Inj IM ONE (19:30)
[2016-08-05] MEDS ORDERED: ALBUTEROL SULF8.5 GM INH (19:47)
[2016-08-05] MEDS ORDERED: COLCHICINE0.6 M1 PO (19:47)
[2016-08-05 20:29] VITALS: BP 132/83
--- NOTE | 2016-08-05 22:00 | Emergency Room Report ---
History of Present Illness General Chief Complaint: Pain Source: Patient, Medical Record Present Illness HPI This is a 55-year-old female who presented after increased lower extremity pain. Patient reported history of prior episodes of gout. Patient stated this felt similar to prior gouty flares. Patient had been taking Toradol previously for similar type symptoms were the patient reports having chronic back pain as well. The patient denies any fever. She reported having a moderate cough. Patient prior history of asthma. Allergies: Coded Allergies: No Known Allergies (Verified , 12/23/09) Patient History Past Medical History: see triage record Reviewed Nursing Documentation: PMH: Agreed, PSxH: Agreed Nursing Documentation-PMH Past Medical History: No History, Except For Hx Cardiac Problems: Yes Hx Hypertension: Yes Hx Asthma: Yes Hx Diabetes: No Hx Cancer: No Hx Headaches: Yes - migraines Hx Numbness: Yes - both legs Review of Systems All Other Systems: negative except mentioned in HPI Physical Exam Vital Signs Date Time Temp Pulse Resp B/P Pulse Ox O2 Delivery O2 Flow Rate FiO2 08/05/16 18:40 98.2 76 20 138/81 97 Room Air 08/05/16 20:06 21 Sp02 EP Interpretation: reviewed, normal General Appearance: normal inspection, well appearing, no apparent distress, alert, GCS 15 Head: atraumatic ENT: normal ENT inspection, hearing grossly normal, normal voice Neck: normal inspection, full range of motion, supple, no bony tend Respiratory: normal inspection, no respiratory distress, no retraction, wheezing Cardiovascular #1: regular rate, rhythm, no edema Gastrointestinal: normal inspection, normal bowel sounds, non tender, soft, no guarding, no hernia Genitourinary: no CVA tenderness Musculoskeletal: normal inspection, back normal, normal range of motion Neurologic: normal inspection, alert, oriented x3, responsive, swabber III-XII nml as tested, speech normal Psychiatric: normal inspection, judgement/insight normal, mood/affect normal Skin: normal inspection, normal color, no rash Medical Decision Making Diagnostic Impression: Primary Impression: Bronchitis Additional Impression: Gout attack ER Course The patient presented for cough. Differential diagnosis included but was not limited to bronchitis, pneumonia, pulmonary embolism, pericarditis, asthma, foreign body. The patient was noted to have additional a left extremity pain which was consistent the patient's gout. The patient was given Toradol for pain. She was given a breathing treatment with improvement in respiratory status . The patient is advised to follow up with primary care doctor in 1-2 days. Patient is advised to return if any worsening condition or if any changes in status that are concerning. Last Vital Signs Date Time Temp Pulse Resp B/P Pulse Ox O2 Delivery O2 Flow Rate FiO2 08/05/16 20:10 86 20 97 Room Air 21 08/05/16 18:40 98.2 138/81 Status: improved Disposition: HOME, SELF-CARE Condition: Stable Scripts Colchicine (Colchicine) 0.6 Mg Capsule 0.6 MG PO DAILY, #10 CAP Prov: Steven Franco 08/05/16 Albuterol Sulfate* (ALBUTEROL SULFATE MDI*) 8.5 Gm Hfa.aer.ad 2 PUFF INH Q4H Y for cough/wheezing, #1 EA 0 Refills Prov: Steven Franco 08/05/16 Patient Instructions: Acute Bronchitis, [id number] Steven Franco August 05, 2016 22:00
== END 2016-08-05 20:29 | disposition home or self-care (01) ==
LOC: EMR 19:16
DX: J40 Bronchitis, not specified as acute or chronic (principal); M10.9 Gout, unspecified; I10 Essential (primary) hypertension; J45.909 Unspecified asthma, uncomplicated
CPT/HCPCS: 94640; 94664; 96372; 99284; J7620

== ENCOUNTER 2016-09-29 19:08 | Emergency (ER) | payer MEDICAID, OTHER ==
[~2016-09-29] VITALS: Ht 167.6 cm; Wt 117.9 kg
[~2016-09-29 19:08] MED LIST changes: +COLCHICINE0.6 M1 PO; +DIAZEPAM2 MG ORAL; +NITROGLYCERIN0.4 MG SL; +VICODIN 5-3001 EACH ORAL; +ZIAC1 EA ORAL
[2016-09-29 19:10] VITALS: BP 130/80
[2016-09-29] MEDS ORDERED: NORCO 5-325 TA1 EACH ORAL (19:39)
[2016-09-29] MEDS ORDERED: CLINDAMYCIN HC300 MG ORAL (19:39)
--- NOTE | 2016-09-29 19:39 | Emergency Room Report ---
History of Present Illness General Chief Complaint: Pain Source: Patient, Medical Record, EMS Present Illness HPI Is a 55-year-old female with history of hypertension. She presents with chief complaint of bilateral leg pain. Also with swelling and drainage. No fever chills but no nausea vomiting. Pain is 10 out of 10. Said she is out of her pain medication. She was at [place] recently for the same thing. No nausea no vomiting. Similar symptom in the past. Her wound culture grew out Escherichia coli and Klebsiella which were sensitive to Levaquin. Allergies: Coded Allergies: No Known Allergies (Verified , 12/23/09) Patient History Past Medical History: see triage record, old chart reviewed Past Surgical History: other Pertinent Family History: none Social History: Reports: smoking Now: No Immunizations: other Reviewed Nursing Documentation: PMH: Agreed, PSxH: Agreed Nursing Documentation-PMH Past Medical History: No History, Except For Hx Cardiac Problems: Yes Hx Hypertension: Yes Hx Asthma: Yes Hx Diabetes: No Hx Cancer: No Hx Headaches: Yes - migraines Hx Numbness: Yes - both legs Review of Systems Eye: Denies: blurred vision, eye pain ENT: Denies: ear pain, nose congestion, throat swelling Respiratory: Denies: cough, shortness of breath Cardiovascular: Denies: chest pain, palpitations Gastrointestinal: Denies: abdominal pain, diarrhea, nausea, vomiting Musculoskeletal: Reports: muscle pain, Denies: back pain, joint pain Skin: Denies: rash Neurological: Denies: headache, numbness Endocrine: Denies: increased thirst, increased urine Hematologic/Lymphatic: Denies: easy bruising All Other Systems: negative except mentioned in HPI Physical Exam Vital Signs Date Time Temp Pulse Resp B/P Pulse Ox O2 Delivery O2 Flow Rate FiO2 09/29/16 19:01 97.5 98 16 130/80 98 Room Air vitals normal Sp02 EP Interpretation: reviewed, normal General Appearance: well appearing, no apparent distress, alert Head: normocephalic, atraumatic Eyes: bilateral eye EOMI, bilateral eye PERRL ENT: hearing grossly normal, normal pharynx Neck: full range of motion, supple, no meningismus Respiratory: chest non-tender, lungs clear, normal breath sounds Cardiovascular #1: regular rate, rhythm, no murmur Gastrointestinal: normal bowel sounds, non tender, no mass, no organomegaly, no bruit, non-distended Musculoskeletal: back normal, normal range of motion, other - Patient uses a walker. Bilateral lower extremity with chronic lymphedema. There small ulceration from scratching. no drainage. diffuse tenderness. Neurologic: alert, oriented x3 Psychiatric: mood/affect normal Skin: warm/dry Medical Decision Making Diagnostic Impression: Primary Impression: Lymphedema of both lower extremities Additional Impressions: Cellulitis and abscess of leg Opioid dependence Qualified Codes: F11.20 - Opioid dependence, uncomplicated Morbid obesity Qualified Codes: E66.01 - Morbid (severe) obesity due to excess calories ER Course Patient presents with exacerbation of chronic pain. She may have some cellulitis of the lower extremity. No evidence of necrotizing fasciitis or abscess. We'll discharge home. Last Vital Signs Date Time Temp Pulse Resp B/P Pulse Ox O2 Delivery O2 Flow Rate FiO2 09/29/16 19:01 97.5 98 16 130/80 98 Room Air Status: improved Disposition: HOME, SELF-CARE Condition: Stable Scripts Hydrocodone Bit/Acetaminophen 5-325* (NORCO 5-325*) 1 Each Tablet 1 TAB ORAL Q6H Y for For Pain, #20 TAB 0 Refills Prov: NIKI CASTILLO M.D. 09/29/16 Clindamycin Hcl (CLINDAMYCIN HCL) 300 Mg Capsule 300 MG ORAL THREE TIMES A DAY, #21 CAP Prov: NIKI CASTILLO M.D. 09/29/16 Additional Instructions: Followup with your DrDanielle in 7 days. Return if worse. NIKI CASTILLO M.D. Sep 29, 2016 19:39
[2016-09-29] MEDS ORDERED: Levofloxacin 500mg tab ORAL ONE (19:45)
[2016-09-29] MEDS ORDERED: Norco 5mg/325mg tab ORAL ONE (19:45)
[2016-09-29 19:58] VITALS: BP 135/82
== END 2016-09-29 19:58 | disposition home or self-care (01) ==
LOC: EDBD 19:08 → EMR 19:30
DX: I89.0 Lymphedema, not elsewhere classified (principal); L03.116 Cellulitis of left lower limb; L03.115 Cellulitis of right lower limb; L02.416 Cutaneous abscess of left lower limb; L02.415 Cutaneous abscess of right lower limb; F11.20 Opioid dependence, uncomplicated; I10 Essential (primary) hypertension; J45.909 Unspecified asthma, uncomplicated; F17.200 Nicotine dependence, unspecified, uncomplicated
CPT/HCPCS: 99284

== ENCOUNTER 2018-10-22 19:42 | Inpatient (IN) | payer MEDICAID ==
[~2018-10-22] VITALS: Ht 160 cm; Wt 116.6 kg
[~2018-10-22 19:42] MED LIST changes: +CLINDAMYCIN HC300 MG ORAL; +NORCO 5-325 TA1 EACH ORAL
--- NOTE | 2018-10-22 19:50 | NUR ---
ED Nurse Note: pt brought in by ambulance from home c/c back pain, hernia evaluation and pain, sob, and cody leg pain and swelling, pt states she used to be iv drug user when she was teenager to early 20s, pt reports she's been having issues for a while. noted pt tachypnea, LS=rhonchi to ausculation, noted edema BLE w/ skin rash, possible track henao, noted skin rash on BUE. pt states she ambulates w/ walker, but unable to do it at this time due to weakness and pain. sinus tach noted on case monitor, will cont monitor. ERMD at the bedside.
[2018-10-22 20:30] VITALS: BP 110/85
--- NOTE | 2018-10-22 20:34 | Emergency Room Report ---
History of Present Illness General Chief Complaint: Lower Back Pain or Injury Source: Patient Present Illness HPI 57 year old female history of hypertension CHF, chronic back pain presents with shortness of breath x1 day, she endorses some chest pain, she denies any nausea vomiting she endorses chronic back pain, patient presents via EMS. She denies any aggravating or relieving factors, she cannot remember all her medications, she endorses some achy chest pain Allergies: Coded Allergies: No Known Allergies (Verified , 12/23/09) Patient History Past Medical History: see triage record Now: No Reviewed Nursing Documentation: PMH: Agreed; PSxH: Agreed Nursing Documentation-PMH Past Medical History: No History, Except For Hx Cardiac Problems: Yes Hx Hypertension: Yes Hx Asthma: Yes Hx Diabetes: No Hx Cancer: No Hx Headaches: Yes - migraines Hx Numbness: Yes - both legs Review of Systems Respiratory: Reports: orthopnea, shortness of breath Cardiovascular: Reports: chest pain, palpitations All Other Systems: negative except mentioned in HPI Physical Exam Vital Signs Date Time Temp Pulse Resp B/P (MAP) Pulse Ox O2 Delivery O2 Flow Rate FiO2 10/22/18 19:47 97.9 77 16 125/89 (101) 99 Room Air Sp02 EP Interpretation: reviewed, normal General Appearance: alert, non-toxic, mild distress, moderate distress Head: normocephalic, atraumatic Eyes: bilateral eye PERRL, bilateral eye EOMI ENT: uvula midline, moist mucus membranes Neck: supple, thyroid normal, supple/symm/no masses Respiratory: crackles, other - tachypnea Cardiovascular #1: normal peripheral pulses, no gallop, no murmur, tachycardia , edema - 3+ pitting edema Gastrointestinal: no guarding, no rebound, hernia Musculoskeletal: normal inspection Neurologic: alert, oriented x3 Psychiatric: mood/affect normal Skin: no rash, warm/dry Procedures Critical Care Time Critical Care Time Given the critical condition in which the patient arrived, the patient was immediately assessed by myself and the nurse, and cardiac monitoring initiated due to the potential for rapid decompensation of the patient's clinical condition. During the course of the patient's stay, I spent a considerable amount of time at the bedside performing serial re-evaluations of the patient's hemodynamic and clinical status because of the recognized potential threat to life or limb in this condition. I then had a chance to review not only all of the available current laboratory and radiographic studies obtained today, but I also reviewed old records available to me at the time. Additionally, any ancillary information available including brass and wind instrument repairer records were reviewed. Sequential vital signs were obtained. Patient with atrial fibrillation with RVR, requiring IV medication for stabilization, patient diuresed, patient was tachypneic, not improved with DuoNeb administration. Pt is complicated, spoke with transfer center regarding patient's instability and inability to be transferred Critical Care time of 40 minutes was performed exclusive of billable procedures. Medical Decision Making Diagnostic Impression: Primary Impression: CHF exacerbation Additional Impressions: Dyspnea Panniculitis Atrial fibrillation with RVR ER Course 57-year-old female presents with shortness of breath, A. fib with RVR, metoprolol was pushed which reduces the heart rate, blood pressure initially was hypotensive now hypertensive with improved heart rate control, antibiotics were started for her panniculitis, a Franz was inserted, patient with multiple comorbidities requires admission Spoke with Dr. Rose at 10:37pm who agrees patient requires admission and is unstable for transport. Laboratory Tests Test 10/22/18 21:20 White Blood Count 7.7 K/UL (4.8-10.8) Red Blood Count 4.12 M/UL (4.20-5.40) L Hemoglobin 9.0 G/DL (12.0-16.0) L Hematocrit 29.4 % (37.0-47.0) L Mean Corpuscular Volume 71 FL (80-99) L Mean Corpuscular Hemoglobin 21.9 PG (27.0-31.0) L Mean Corpuscular Hemoglobin Concent 30.7 G/DL (32.0-36.0) L Red Cell Distribution Width 16.3 % (11.6-14.8) H Platelet Count 384 K/UL (150-450) Mean Platelet Volume 5.1 FL (6.5-10.1) L Neutrophils (%) (Auto) 64.9 % (45.0-75.0) Lymphocytes (%) (Auto) 18.3 % (20.0-45.0) L Monocytes (%) (Auto) 14.4 % (1.0-10.0) H Eosinophils (%) (Auto) 0.1 % (0.0-3.0) Basophils (%) (Auto) 2.4 % (0.0-2.0) H Prothrombin Time 14.8 SEC (9.30-11.50) H Prothrombin Time INR 1.4 (0.9-1.1) H PTT 25 SEC (23-33) Urine Color Pending Urine Appearance Pending Urine pH Pending Urine Specific [place] Pending Urine Protein Pending Urine Glucose (UA) Pending Urine Ketones Pending Urine Blood Pending Urine Nitrite Pending Urine Bilirubin Pending Urine Urobilinogen Pending Urine Leukocyte Esterase Pending Sodium Level 142 MMOL/L (136-145) Potassium Level 4.9 MMOL/L (3.5-5.1) Chloride Level 104 MMOL/L (98-107) Carbon Dioxide Level 28 MMOL/L (21-32) Anion Gap 10 mmol/L (5-15) Blood Urea Nitrogen 36 mg/dL (7-18) H Creatinine 2.2 MG/DL (0.55-1.30) H Estimate Glomerular Filtration Rate 27.8 mL/min (>60) Glucose Level 100 MG/DL (74-106) Calcium Level 9.4 MG/DL (8.5-10.1) Total Bilirubin 1.2 MG/DL (0.2-1.0) H Direct Bilirubin 0.7 MG/DL (0.0-0.3) H Aspartate Amino Transferase (AST) 57 U/L (15-37) H Alanine Aminotransferase (ALT) 28 U/L (12-78) Alkaline Phosphatase 70 U/L (46-116) Total Creatine Kinase 67 U/L (26-308) Creatine Kinase MB 0.8 NG/ML (0.0-3.6) Creatine Kinase MB Relative Index 1.1 Troponin I 0.048 ng/mL (0.000-0.056) Pro-B-Type Natriuretic Peptide > 26666 pg/mL (0-125) H Total Protein 8.9 G/DL (6.4-8.2) H Albumin 2.4 G/DL (3.4-5.0) L Globulin 6.5 g/dL Albumin/Globulin Ratio 0.4 (1.0-2.7) L Lipase 116 U/L (73-393) EKG Diagnostic Results EKG Time: 20:11 EP Interpretation: Atrial fibrillation, right axis deviation, no acute ST elevations, QTc 412 Rate: tachycardiac Rhythm: other - atrial fibrillation ST Segments: no acute changes Rhythm Strip Diag. Results Rhythm Strip Time: 21:50 EP Interpretation: yes Rate: 164 Rhythm: other - afib, pvc present, Chest X-Ray Diagnostic Results Chest X-Ray Diagnostic Results : Chest X-Ray Ordered: Yes # of Views/Limited/Complete: 1 View Indication: Shortness of Breath Interpretation: other - Thing left costophrenic angle, Impression: Other - Pulmonary edema Electronically Signed by: Parth Mcwilliams MD CT/MRI/US Diagnostic Results CT/MRI/US Diagnostic Results : Imaging Test Ordered: CT abdomen and pelvis Impression CT ABDOMEN & PELVIS Without Contrast: Compared to 07/04/11 Limited due to obese habitus. Bulky adenopathy, most pronounced to the left inguinal region are noted measures up to 6 cm. Correlate for history of malignancy. Bowel anastomoses in the anterior central abdomen. No free air. Colonic diverticula without clear findings of diverticulitis. Unremarkable appendix. Multiple fatty ventral hernias. Extensive skin thickening and subcutaneous edema to the abdominal wall. Presumed cellulitis/panniculitis. No soft tissue gas. Marked cardiomegaly. Subsegmental basilar atelectasis Last Vital Signs Date Time Temp Pulse Resp B/P (MAP) Pulse Ox O2 Delivery O2 Flow Rate FiO2 10/22/18 19:47 97.9 77 16 125/89 (101) 99 Room Air Disposition: ADMITTED INPATIENT Condition: Stable Signed Out To: Parth Sandoval M.D. Oct 22, 2018 20:34
--- NOTE | 2018-10-22 20:50 | NUR ---
ED Nurse Note: pt states she cannot go to CT due to claustrophobia, ERMD notified, pt states she need breathing treatment and it makes her feel better, ermd notified.
[2018-10-22] MEDS ORDERED: LORazepam Inj 2mg/ml 1ml IV ONE (21:00)
[2018-10-22] MEDS ORDERED: Albuterol/Ipratropium 3ml neb HHN ONE (21:00)
--- NOTE | 2018-10-22 21:20 | NUR ---
ED Nurse Note: pt didn't finish breathing tx, pt states it was uncomfortable and didn't want to do it, ermd notified.
--- NOTE | 2018-10-22 21:30 | NUR ---
ED Nurse Note: pt pulse at 160s, ERMD notified.
[2018-10-22 21:35] LABS: BASOPHILS % (AUTO) 2.4 % (0.0-2.0); EOSINOPHILS % (AUTO) 0.1 % (0.0-3.0); HEMATOCRIT 29.4 % (37.0-47.0); INR 1.4 (0.9-1.1); LYMPHOCYTES % (AUTO) 18.3 % (20.0-45.0); MEAN CORPUSCULAR VOLUME 71 FL (80-99); MONOCYTES % (AUTO) 14.4 % (1.0-10.0); NEUTROPHILS % (AUTO) 64.9 % (45.0-75.0); PLATELET COUNT 384 K/UL (150-450); RED BLOOD COUNT 4.12 M/UL (4.20-5.40); RED CELL DISTRIBUTION WIDTH 16.3 % (11.6-14.8); WHITE BLOOD COUNT 7.7 K/UL (4.8-10.8)
--- NOTE | 2018-10-22 21:35 | NUR ---
ED Nurse Note: PT C/O BACK PAIN 01/14, ERMD NOTIFIED.
[2018-10-22 21:38] LABS: ANION GAP 10 mmol/L (5-15); BLOOD UREA NITROGEN 36 mg/dL (7-18); CALCIUM 9.4 MG/DL (8.5-10.1); CARBON DIOXIDE 28 MMOL/L (21-32); CHLORIDE 104 MMOL/L (98-107); CREATININE 2.2 MG/DL (0.55-1.30); POTASSIUM 4.9 MMOL/L (3.5-5.1); SODIUM 142 MMOL/L (136-145)
[2018-10-22] MEDS ORDERED: Morphine Sulfate 4mg/ml Inj (IV USE ONLY) IVP ONE (21:45)
[2018-10-22 21:48] VITALS: BP 115/87
[2018-10-22] MEDS: Metoprolol 5mg/5ml Inj IVP SCH ×3 (21:48→22:30)
[2018-10-22 21:50] LABS: ALANINE AMINOTRANSFERASE 28 U/L (12-78); ALBUMIN 2.4 G/DL (3.4-5.0); ALBUMIN/GLOBULIN RATIO 0.4 (1.0-2.7); ALKALINE PHOSPHATASE 70 U/L (46-116); ASPARTATE AMINO TRANSFERASE 57 U/L (15-37); BILIRUBIN,TOTAL 1.2 MG/DL (0.2-1.0); CKMB 0.8 NG/ML (0.0-3.6); CREATINE KINASE 67 U/L (26-308)
[2018-10-22 21:52] LABS: BILIRUBIN,DIRECT 0.7 MG/DL (0.0-0.3)
[2018-10-22] MEDS ORDERED: ceFAZolin 1gm/50ml Premix 50 ML IV ONE (22:00)
--- NOTE | 2018-10-22 22:28 | NUR ---
ED Nurse Note: pt refused esteban insertion, ERMD notified.
[2018-10-22 22:30] VITALS: BP 160/105
--- NOTE | 2018-10-22 23:00 | NUR ---
ED Nurse Note: pt refused skin assessment, pt states she doesn't want to turn.
[2018-10-22] MEDS ORDERED: dilTIAZem HCl 25mg/5ml Inj IVP ONE (23:15)
[2018-10-22 23:45] VITALS: BP 165/135
--- NOTE | 2018-10-23 | NUR ---
ED Nurse Note: pt refused to go over belongings, pt verbalized understanding of possible loss and agrees with plan.
[2018-10-23] MEDS ORDERED: HYDROXYZINE HCL10 M1 PO (00:20)
[2018-10-23] MEDS ORDERED: CARVEDILOL6.25 MG ORAL (00:20)
[2018-10-23] MEDS ORDERED: ASPIRIN EC81 MG ORAL (00:20)
[2018-10-23] MEDS ORDERED: ZOFRAN4 M3 ORAL (00:20)
[2018-10-23] MEDS ORDERED: LISINOPRIL30 MG ORAL (00:20)
[2018-10-23] MEDS ORDERED: COLACE100 MG ORAL (00:20)
[2018-10-23] MEDS ORDERED: FUROSEMIDE40 MG ORAL (00:20)
[2018-10-23] MEDS ORDERED: GABAPENTIN400 MG ORAL (00:20)
--- NOTE | 2018-10-23 00:31 | NUR ---
ED Nurse Note: report given to RN Juanito.
--- NOTE | 2018-10-23 00:35 | NUR ---
ED Nurse Note: PT REFUSED BP.
--- NOTE | 2018-10-23 00:45 | NUR ---
ED Nurse Note: lactic reflex sent to lab.
--- NOTE | 2018-10-23 00:55 | NUR ---
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 iv intact.
[2018-10-23 01:00] VITALS: BP 134/92
--- NOTE | 2018-10-23 01:00 | NUR ---
NURSE NOTES: Received report from Hank Orona RN. regarding patient's transfer to TELE floor from ED. Belongings checked upon visual inspection only, patient did not want to open bags to confirm inventory; Belongings list checked and noted at bedside. Continuous bus driver/monitor in place per protocol and noted Afib with RVR upon admission. Head to toe assessment initiated and noted rashes on BLE and BUE, patient refuses to be turned to the side to visually inspect back and sacrum area. Stated that "i dont have any wounds on my back, leave me alone". Patient is AAO X 3-4 with bouts of incoherency and non-compliance to simple instructions. Safety precaution in place; siderails X3 up, call light within reach, bed in lowest position, brakes and alarm on at all times. Needs and wants anticipated and attended. Will continue plan of care and monitor for any changes noted.
--- NOTE | 2018-10-23 02:00 | NUR ---
NURSE NOTES: Called and spoke with Estee Emerson MD. New orders received and carried out. Will continue plan of care. Scheduled 2D echocardiogram today 10/23/18 per
[2018-10-23] MEDS ORDERED: HYDROcodone/Acetamin 5/325 tab ORAL PRN ×2 (02:15→20:15)
[2018-10-23 04:00] VITALS: BP 130/93
--- NOTE | 2018-10-23 04:28 | NUR ---
NURSE NOTES: Patient in bed asleep with no S/S of distress. Will continue to monitor
--- NOTE | 2018-10-23 07:09 | NUR ---
CASE MANAGEMENT:REVIEW 57 YR OLD FEMALE BIBA FROM HOME CC: PAIN ~ BACK AND HERNIAL PMH: IV DRUG USER IN PAST. AMBULATES WITH WALKER SI:CHF EXACERBATION. AFIB W/RVR. DYSPNEA PANNICULITIS 97.9 145 26 165/135 99% ON RA H/H-9.0/29.4 BUN+36 CR+2.2 IS: ASA PO IV LASIX X2 IV ATIVAN IV ANCEF DUONEB HHN IV MORPHINE IV LOPRESSOR X3 IV CARDIZEM IV ANCEF BLOOD CX CT ABD CXR : TO TELEMETRY INTERQUAL CRITERIA MET
--- NOTE | 2018-10-23 07:10 | NUR ---
NURSE NOTES: Received report from Juanito Mandujano RN. Patient is AAO x 3 and delayed response. Patient was found on 2L NC. Continuous campus monitor in place per protocol and noted Afib. Safety precaution in place; siderails 2 3 up, call light within reach, bed in lowest position, brakes and alarm on at all times. Will continue plan of care.
--- NOTE | 2018-10-23 07:31 | NUR ---
HAND-OFF: Report given to Britney Montano RN. PAtient in bed asleep with no S/S of distress at this time. Endorsed plan of care.
[2018-10-23 08:00] VITALS: BP 124/86
--- NOTE | 2018-10-23 08:54 | Diagnostic Imaging Report ---
Indication: Pain, Abdominal hernia pain, chronic low back pain Technique: Spiral acquisitions obtained through the abdomen and pelvis. No oral contrast utilized, per emergency room physician request No IV contrast utilized, per referring physician request.. Multiplanar reconstructions were generated. Total dose length product 1272.81 mGycm. CTDIvol(s) 26.2 mGy. Dose reduction achieved using automated exposure control Comparison: Contrast study of 07/04/2011 Findings: Exam is limited by image noise related to body habitus as well as lack of oral and IV contrast. Again demonstrated is evidence of surgical repair of a ventral hernia. There may have been interim revision as the previously demonstrated mesh is less apparent than currently. Previously demonstrated extraluminal gas bubbles are no longer evident. There is currently diastasis of the upper rectus abdominis tendon with slight anterior protrusion of the left lobe of liver as well as abdominal fat, but no yue herniation is noted. There are multiple anastomotic staple lines in the anterior small bowel centrally. There is marked skin thickening of the skin of the inferior pannus. There is considerable edema of the subcutaneous fat. No small bowel distention is demonstrated. No free or loculated intraperitoneal gas or fluid is evident. The distal esophagus, stomach, duodenum are unremarkable. The appendix is normal. There is Equivocal colonic diverticulosis. No evidence of diverticulitis. There is trace free fluid within the pelvis. Bulky adenopathy is seen in the left inguinal region, largest node measures 5.6 x 4 cm. There is also pelvic sidewall adenopathy on the left as well as left iliac chain and retroperitoneal adenopathy. This is a new finding. Lack of IV contrast limits assessment of the solid organs. The liver, gallbladder, bile ducts, pancreas, spleen, adrenals, right kidney are all unremarkable. A calculus is seen in the left lower pole collecting system, measures approximately 3 mm in diameter and is unchanged. No ureteral calculi, hydronephrosis, or hydroureter. The included lung bases demonstrate some atelectasis and/or consolidation on the right. The heart is enlarged. The bones demonstrate degenerative spondylosis changes. Impression: Limited exam, as described Bulky left inguinal, iliac chain, and retroperitoneal lymphadenopathy. This is concerning for neoplasm, either primary or metastatic Since 07/04/2011, interim revision of previously demonstrated ventral hernia repair and evidence of bowel anastomoses. There is borderline fat-containing ventral hernias as well as some diastasis of the abdominal wall musculature centrally. Edema of the subcutaneous fat. Marked skin thickening of the pannus concerning for pannus cellulitis. Correlate with clinical findings Trace free pelvic fluid, nonspecific Cardiomegaly Right basilar atelectasis and possible consolidation Possible colonic diverticulosis Degenerative spondylosis changes Nonobstructive left lower pole intrarenal calculus, also previously described This agrees with the preliminary interpretation provided overnight by [facility] teleradiology service. The CT scanner at [facility] is accredited by the [employer] and the scans are performed using protocols designed to limit radiation exposure to as low as reasonably achievable to attain images of sufficient resolution adequate for diagnostic evaluation.
[2018-10-23] MEDS ORDERED: Lisinopril 20mg tab ORAL SCH (09:00)
[2018-10-23] MEDS ORDERED: Lisinopril 2.5mg tab ORAL SCH (09:00)
[2018-10-23] MEDS: Docusate 100mg cap ORAL SCH ×2 (09:00→18:00)
[2018-10-23] MEDS ORDERED: Metoprolol Succinate XL 100mg tab ORAL SCH (09:00)
[2018-10-23] MEDS ORDERED: Furosemide 40mg tab ORAL SCH (09:00)
[2018-10-23] MEDS ORDERED: Carvedilol 6.25mg Tab ORAL SCH (09:00)
--- NOTE | 2018-10-23 09:26 | NUR ---
NURSE NOTES: @9am- Patient heart rate is 160 w/RVR uncontrolled. patient was in bathroom having a bowel movement. 9:05am- Patient stated she wants to spoke. Explained to patient to the hospital policy for not smoking and need a doctor's order. Patient refused. Patient states her slippers are missing. Found slippers two feet away. Explained patient about medications from home to pharmacy. Patient requested medication returned to her. 9:11am. Went with patient to outside of the hospital. Patient smoked. 9:23am- Patient returned to room. Dr. Cyr saw patient.
[2018-10-23] MEDS: Aspirin EC 81mg tab ORAL SCH (09:43)
[2018-10-23] MEDS: Allopurinol 100mg Tab ORAL SCH (09:44)
--- NOTE | 2018-10-23 09:56 | Consultation ---
History of Present Illness General Date patient seen: Oct 23, 2018 Time patient seen: 09:54 Chief Complaint: Lower Back Pain or Injury Present Illness HPI Patient brought in by ambulance from home c/c back pain, hernia evaluation and pain, sob, and bilateral leg pain and swelling, pt states she used to be iv drug user when she was teenager to early 20s, pt reports she's been having issues for a while. Hx of cardiomyopathy and systolic dysfunction. BNP elevated , troponin normal. CT abdomen pelvis completed in ER. Allergies: Coded Allergies: No Known Allergies (Verified , 12/23/09) Medication History Scheduled Allopurinol* (Allopurinol*), 100 MG ORAL DAILY, (Reported) Aspirin Ec* (Aspirin Ec*), 81 MG ORAL DAILY, (Reported) Aspirin* (Aspir 81*), 81 MG ORAL DAILY, (Reported) Aspirin* (Aspir 81*), 81 MG ORAL DAILY, (Reported) Carvedilol* (Carvedilol*), 6.25 MG ORAL EVERY 12 HOURS, (Reported) Clindamycin Hcl (Clindamycin Hcl), 300 MG ORAL THREE TIMES A DAY Docusate Sodium* (Colace*), 100 MG ORAL TWICE A DAY, (Reported) Furosemide* (Lasix*), 40 MG ORAL DAILY, (Reported) Gabapentin* (Gabapentin*), 400 MG ORAL THREE TIMES A DAY, (Reported) Hydrochlorothiazide* (Hydrochlorothiazide*), 25 MG ORAL DAILY, (Reported) Lisinopril* (Lisinopril*), 25 MG ORAL DAILY, (Reported) Scheduled PRN Carisoprodol* (Carisoprodol*), 350 MG ORAL BID PRN, (Reported) Diazepam* (Diazepam*), 2 MG ORAL Q6H PRN for ANXIETY, (Reported) Hydrocodone Bit/Acetaminophen (Vicodin 5-300 Mg Tablet), 1 TAB ORAL Q4H PRN for For Pain, (Reported) Hydrocodone Bit/Acetaminophen 5-325* (Monon 5-325*), 1 TAB ORAL Q6H PRN for For Pain Hydroxyzine Hcl (Hydroxyzine Hcl), 10 MG PO Q8HR PRN for Itching, (Reported) Ondansetron* (Zofran*), 8 MG ORAL BID PRN for Nausea & Vomiting, (Reported) Miscellaneous Medications Hctz/Bisoprolol (Ziac 5-6.25 mg Tablet), 1 EA ORAL, (Reported) Nitroglycerin (Nitroglycerin), 0.4 MG SL, (Reported) Patient History Healthcare decision maker Resuscitation status Full Code Advanced Directive on File No Review of Systems Constitutional: Reports: no symptoms Eye: Reports: no symptoms ENT: Reports: no symptoms Respiratory: Reports: orthopnea, shortness of breath Cardiovascular: Reports: chest pain, edema, PND Gastrointestinal: Reports: no symptoms Genitourinary: Reports: no symptoms Musculoskeletal: Reports: no symptoms Skin: Reports: no symptoms Psychiatric: Reports: no symptoms Neurological: Reports: no symptoms Endocrine: Reports: no symptoms Hematologic/Lymphatic: Reports: no symptoms Physical Exam General Appearance: no apparent distress, alert Lines, tubes and drains: peripheral HEENT: normocephalic, atraumatic Neck: non-tender, normal alignment, supple, normal inspection Respiratory/Chest: chest wall non-tender, crackles/rales Cardiovascular/Chest: normal peripheral pulses, normal rate Abdomen: normal bowel sounds, non tender Extremities: normal range of motion, non-tender, moderate edema Skin Exam: normal pigmentation, warm/dry Neurologic: back pad inspector II-XII grossly normal, no motor/sensory deficits Last 24 Hour Vital Signs Date Time Temp Pulse Resp B/P (MAP) Pulse Ox O2 Delivery O2 Flow Rate FiO2 10/23/18 09:45 124/86 10/23/18 09:44 124/86 10/23/18 09:42 86 124/86 10/23/18 08:00 98.1 86 20 124/86 (99) 100 10/23/18 04:00 97.2 75 18 130/93 (105) 99 10/23/18 04:00 79 10/23/18 01:26 Nasal Cannula 2.0 10/23/18 01:15 106 10/23/18 01:00 97.6 80 18 134/92 (106) 97 10/23/18 00:55 98.1 88 30 95 Room Air 10/22/18 23:45 98.1 88 0 165/135 99 Room Air 10/22/18 23:24 135 160/135 10/22/18 22:30 135 160/105 10/22/18 22:30 97.9 135 26 160/105 99 Room Air 10/22/18 22:17 145 165/135 10/22/18 22:16 98.1 10/22/18 21:48 97.9 165 26 115/87 99 Room Air 10/22/18 21:48 165 115/87 10/22/18 21:29 140 26 99 Room Air 21 10/22/18 21:22 145 26 99 Room Air 21 10/22/18 21:21 145 26 99 Room Air 21 10/22/18 20:30 140 16 Room Air 10/22/18 20:30 97.9 140 16 110/85 95 Room Air 10/22/18 19:47 97.9 77 16 125/89 (101) 99 Room Air Intake and Output 10/22/18 10/23/18 19:00 07:00 Intake Total 100 ml Balance 100 ml Intake IV Total 100 ml # Bowel Movements 2 Laboratory Tests Test 10/22/18 21:20 10/22/18 22:05 10/23/18 00:45 White Blood Count 7.7 K/UL (4.8-10.8) Red Blood Count 4.12 M/UL (4.20-5.40) L Hemoglobin 9.0 G/DL (12.0-16.0) L Hematocrit 29.4 % (37.0-47.0) L Mean Corpuscular Volume 71 FL (80-99) L Mean Corpuscular Hemoglobin 21.9 PG (27.0-31.0) L Mean Corpuscular Hemoglobin Concent 30.7 G/DL (32.0-36.0) L Red Cell Distribution Width 16.3 % (11.6-14.8) H Platelet Count 384 K/UL (150-450) Mean Platelet Volume 5.1 FL (6.5-10.1) L Neutrophils (%) (Auto) 64.9 % (45.0-75.0) Lymphocytes (%) (Auto) 18.3 % (20.0-45.0) L Monocytes (%) (Auto) 14.4 % (1.0-10.0) H Eosinophils (%) (Auto) 0.1 % (0.0-3.0) Basophils (%) (Auto) 2.4 % (0.0-2.0) H Prothrombin Time 14.8 SEC (9.30-11.50) H Prothromb Time International Ratio 1.4 (0.9-1.1) H Activated Partial Thromboplast Time 25 SEC (23-33) Urine Color Pending Urine Appearance Pending Urine pH Pending Urine Specific [place] Pending Urine Protein Pending Urine Glucose (UA) Pending Urine Ketones Pending Urine Blood Pending Urine Nitrite Pending Urine Bilirubin Pending Urine Urobilinogen Pending Urine Leukocyte Esterase Pending Sodium Level 142 MMOL/L (136-145) Potassium Level 4.9 MMOL/L (3.5-5.1) Chloride Level 104 MMOL/L (98-107) Carbon Dioxide Level 28 MMOL/L (21-32) Anion Gap 10 mmol/L (5-15) Blood Urea Nitrogen 36 mg/dL (7-18) H Creatinine 2.2 MG/DL (0.55-1.30) H Estimat Glomerular Filtration Rate 27.8 mL/min (>60) Glucose Level 100 MG/DL (74-106) Calcium Level 9.4 MG/DL (8.5-10.1) Total Bilirubin 1.2 MG/DL (0.2-1.0) H Direct Bilirubin 0.7 MG/DL (0.0-0.3) H Aspartate Amino Transf (AST/SGOT) 57 U/L (15-37) H Alanine Aminotransferase (ALT/SGPT) 28 U/L (12-78) Alkaline Phosphatase 70 U/L (46-116) Total Creatine Kinase 67 U/L (26-308) Creatine Kinase MB 0.8 NG/ML (0.0-3.6) Creatine Kinase MB Relative Index 1.1 Troponin I 0.048 ng/mL (0.000-0.056) Pro-B-Type Natriuretic Peptide > 79986 pg/mL (0-125) H Total Protein 8.9 G/DL (6.4-8.2) H Albumin 2.4 G/DL (3.4-5.0) L Globulin 6.5 g/dL Albumin/Globulin Ratio 0.4 (1.0-2.7) L Lipase 116 U/L (73-393) Lactic Acid Level 2.90 mmol/L (0.4-2.0) H 3.50 mmol/L (0.66-2.22) H Height (Feet): 5 Height (Inches): 3.00 Weight (Pounds): 257 Medications Current Medications Medications (Trade) Dose Ordered Sig/Florencio Route PRN Reason Start Time Stop Time Status Last Admin Dose Admin Acetaminophen/ Hydrocodone Bitart (Monon 5/325) 1 tab Q6H PRN ORAL For Pain 10/23/18 02:15 10/30/18 02:14 10/23/18 09:38 Allopurinol (Zyloprim) 100 mg DAILY ORAL 10/23/18 09:00 11/22/18 08:59 10/23/18 09:44 Aspirin (Ecotrin) 81 mg DAILY ORAL 10/23/18 09:00 11/22/18 08:59 10/23/18 09:43 Carisoprodol (Soma) 350 mg BID PRN ORAL Muscle Spasm 10/23/18 02:15 11/22/18 02:14 Carvedilol (Coreg) 6.25 mg EVERY 12 HOURS ORAL 10/23/18 09:00 11/22/18 08:59 10/23/18 09:42 Docusate Sodium (Colace) 100 mg TWICE A DAY ORAL 10/23/18 09:00 11/22/18 08:59 Furosemide (Lasix) 40 mg DAILY ORAL 10/23/18 09:00 11/22/18 08:59 10/23/18 09:43 Gabapentin (Neurontin) 400 mg THREE TIMES A DAY ORAL 10/23/18 09:00 11/22/18 08:59 10/23/18 09:45 Hydrochlorothiazide (Hydrodiuril) 25 mg DAILY ORAL 10/23/18 09:00 11/22/18 08:59 10/23/18 09:45 Hydroxyzine HCl (Vistaril) 10 mg Q8H PRN ORAL Itching 10/23/18 02:00 11/22/18 01:59 Lisinopril (Prinivil) 20 mg DAILY ORAL 10/23/18 09:00 11/22/18 08:59 10/23/18 09:45 Lisinopril (Zestril) 5 mg DAILY ORAL 10/23/18 09:00 11/22/18 08:59 10/23/18 09:44 Ondansetron HCl (Zofran) 8 mg BID PRN ORAL Nausea & Vomiting 10/23/18 02:00 11/22/18 01:59 Assessment/Plan Status: stable Assessment/Plan: Assessment Systolic CHF LVEF 35% 2016 Moderate mitral regurgitation Anemia Hepatitis C colonic diverticulosis Plan: Repeat Echocardiogram -Aspirin -Metoprolol -Lisinopril -Lasix -May need lifevest/ICD -Outpatient viability study to evaluate for revascularization -Surgery consult for hernia -ID consult for diverticulitis Geovanny Cordon MD Oct 23, 2018 09:56
--- NOTE | 2018-10-23 10:28 | Diagnostic Imaging Report ---
Indication: Chest pain Technique: One view of the chest Comparison: 05/20/2016 Findings: There is atelectasis at the right lung base. The heart is enlarged. There is equivocal mild interstitial edema Impression: Cardiomegaly. Equivocal mild interstitial edema-correlate with clinical findings
--- NOTE | 2018-10-23 10:30 | Consultation ---
DATE OF CONSULTATION: 10/23/2018 CONSULTING PHYSICIAN: Ernesto Cyr M.D. REFERRING PHYSICIAN: Harshal Emerson M.D. REASON FOR CONSULTATION: 1. Hypotension. 2. Acute kidney injury. HISTORY OF PRESENT ILLNESS: The patient is a 57-year-old female with well known CHF and hypertension, who presented to the emergency room complaining of shortness of breath, not feeling well for the past one to two days. She admits to occasional chest pain when she was found to have AFib with RVR. Heart rate was 150 and hypotensive with an elevated creatinine at 2.2 from her baseline of 0.8. As such, the patient was admitted to telemetry for further evaluation and care of AFib, RVR and CHF. PAST MEDICAL HISTORY: 1. CHF. 2. Hypertension. 3. Morbid obesity. PAST SURGICAL HISTORY: Noncontributory. ALLERGIES: No known drug allergies. FAMILY HISTORY: Positive for hypertension REVIEW OF SYSTEMS: NEUROLOGIC: The patient denies headache, change in vision, syncope, or presyncopal episodes. CARDIOVASCULAR: The patient was having some chest pain and pressure, but no palpitations. PULMONARY: Mild shortness of breath. Nonproductive cough. GASTROINTESTINAL/GENITOURINARY: No changes in urinary or bowel habits. No nausea, vomiting, or diarrhea. ENDOCRINOLOGY: No night sweats, fevers, or chills. PHYSICAL EXAMINATION: VITAL SIGNS: Blood pressure 124/86, respiratory rate 20, pulse 150, and temperature 98.1. 100% oxygen saturation on room air. GENERAL: The patient is awake and alert, not otherwise in distress. HEENT: Extraocular muscles intact. No lymphadenopathy noted. CARDIOVASCULAR: S1, S2. Irregularly irregular, tachycardic. PULMONARY: Mild upper rhonchi with fair air movement in all mal[place]. ABDOMEN: Obese, nondistended, and nontender. EXTREMITIES: 1+ edema. LABORATORY DATA: Labs dated 10/22/2018, sodium 142, potassium 2.2, calcium 9.4. Hemoglobin 9, white count 7.7, and platelet count 384. ASSESSMENT AND PLAN: 1. Acute kidney injury secondary to cardiorenal syndrome and hypotension while being in a decompensated heart failure state with poor renal perfusion from atrial fibrillation with rapid ventricular response. At this time, multifactorial acute tubular necrosis. At this time, we would avoid any nephrotoxins. CT of abdomen and pelvis is not showing renal abnormalities. At this time, continue aggressive control of heart rate and hemodynamic stability. We will monitor renal function carefully. 2. Atrial fibrillation with rapid ventricular response. The patient has been given intravenous Cardizem. The patient is ambulating in the [place]. Defer management to Cardiology. 3. Hypotension has stabilized. We will continue to monitor. 4. Congestive heart failure. Lasix being administered. 5. Hypertension. At this time, we will allow ADELITA inhibitor to continue unless renal function deteriorates, as the patient is also on HCTZ. If renal function deteriorates, we will discontinue both temporarily. Ernesto Cyr MD DR: KADEN/KEVIN JOB#: [id number] CC:
--- NOTE | 2018-10-23 10:54 | NUR ---
*-* NO INSURANCE INFORMATION IN THE BAR UNABLE ABLE TO SEND CLINICALS *-*
[2018-10-23 11:35] LABS: ANION GAP 10 mmol/L (5-15); BLOOD UREA NITROGEN 41 mg/dL (7-18); CALCIUM 9.6 MG/DL (8.5-10.1); CARBON DIOXIDE 28 MMOL/L (21-32); CHLORIDE 104 MMOL/L (98-107); CREATININE 2.5 MG/DL (0.55-1.30); POTASSIUM 4.5 MMOL/L (3.5-5.1); SODIUM 142 MMOL/L (136-145)
[2018-10-23 12:00] VITALS: BP 132/61
[2018-10-23] MEDS ORDERED: traMADol 50mg tab ORAL SCH (12:45)
--- NOTE | 2018-10-23 13:31 | NUR ---
In error WCP for 13:30pm. Wrong patient.
--- NOTE | 2018-10-23 14:23 | NUR ---
*-* INSURANCE *-* ALL CLINICAL AND REVIEW HAVE BEEN FAXED TO: [facility] P: [phone] F: [phone] (FAX CLINICALS)
[2018-10-23 16:00] VITALS: BP 158/61
--- NOTE | 2018-10-23 17:00 | History and Physical Report ---
DATE OF ADMISSION: 10/22/2018 HISTORY OF PRESENT ILLNESS: This is a 57-year-old female with a history of morbid obesity, hypertension, and CHF, who came to the hospital with complaints of swelling of both feet. She states she was recently at [facility] and was discharged. She also states that she may have history of sleep apnea and is currently awaiting a sleep study. The patient was seen and evaluated. She was found to have elevated BNP and overnight admitted to the hospital. She was seen by Cardiology and Nephrology. HOME MEDICATIONS: Allopurinol, aspirin, Coreg, Colace, Lasix, gabapentin, and lisinopril. ALLERGIES: None reported. REVIEW OF SYSTEMS: Denies any headaches, hematemesis, melena, hematochezia, night sweats, or weight loss. PAST SURGICAL HISTORY: None. PHYSICAL EXAMINATION: VITAL SIGNS: Blood pressure 120/40, heart rate is 122, respirations 18, and afebrile. GENERAL: Reveals elderly female. HEENT: Unremarkable. CHEST: Showed diminished breath sounds bilaterally with normal heart sounds. ABDOMEN: Soft. EXTREMITIES: There is 2+ edema. IMPRESSION: 1. Atrial fibrillation with RVR. 2. CHF. 3. History of . 4. Mitral regurgitation. 5. Anemia. DISCUSSION: Admitted to the hospital. Currently, heart rate is controlled on medications. She is feeling better with diuresis. I will continue medications. Obtain 2D echo. 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 We will follow. Harshal Emerson M.D. DR: NEHEMIAH JOB#: [id number] CC:
--- NOTE | 2018-10-23 18:48 | Coder Physician Query ---
Clarification is required for compliance, coding accuracy, and to reflect severity of illness for this patient. Dear Dr. Emerson Date:10/23/18 The findings below have been reported on this patient's medical record: Lab Value/Radiographic finding of: Lactic acid: 2.9,3.5 Please Clarify the diagnosis associated with this finding: [ ] Lactic acidosis [ ] Clinically insignificant [ ] other _ [ ] Unable to determine Present on Admission: [] Yes [] No [] Clinically Undetermined Physician signature Date Please also document in your Progress Notes and/or Discharge Summary and indicate if the condition was present on admission. JAMIE
--- NOTE | 2018-10-23 19:30 | NUR ---
NURSE NOTES: @1900- Notified Dr. Cordon of patient in afib at 120-130s. Patient denies pain. Ekg was done. Orders received
--- NOTE | 2018-10-23 19:35 | NUR ---
HAND-OFF: Report given to BONI Vail. Patient is resting in bed. Endorsed about medications ordered. EKG was completed at 19:00.
--- NOTE | 2018-10-23 19:50 | NUR ---
NURSE NOTES: Received pt from BONI Ortega. Pt awake, alert, and talkative. Bed in lowest position. Call light within reach. RN endorsed that patient likes to leave to smoke. Called and received orders from Dr. Cyr for a nicotine patch order. Will input orders and will continue to monitor.
[2018-10-23 20:00] VITALS: BP 146/82
[2018-10-23] MEDS ORDERED: traMADol 50mg tab ORAL PRN (20:15)
--- NOTE | 2018-10-23 21:00 | NUR ---
NURSE NOTES: Pt adamantly refused nicotine patch. Explained to pt that she can no longer leave the floor to smoke cigarettes. Will continue to monitor.
[2018-10-23] MEDS: Xarelto 15mg tab ORAL SCH (21:31)
[2018-10-24] VITALS: BP 136/80
[2018-10-24 04:00] VITALS: BP 86/49
--- NOTE | 2018-10-24 06:54 | NUR ---
NURSE NOTES: Called and left a message with Dr. Cyr regarding pts hypotension. He said he will come see the pt this morning. Will continue to monitor.
[2018-10-24 07:11] LABS: BASOPHILS % (AUTO) 0.8 % (0.0-2.0); EOSINOPHILS % (AUTO) 2.3 % (0.0-3.0); HEMATOCRIT 29.7 % (37.0-47.0); HEMOGLOBIN 8.7 G/DL (12.0-16.0); MEAN CORPUSCULAR VOLUME 73 FL (80-99); MONOCYTES % (AUTO) 18.6 % (1.0-10.0); NEUTROPHILS % (AUTO) 62.3 % (45.0-75.0); PLATELET COUNT 387 K/UL (150-450); RED BLOOD COUNT 4.08 M/UL (4.20-5.40)
[2018-10-24 07:26] LABS: ANION GAP 11 mmol/L (5-15); BLOOD UREA NITROGEN 47 mg/dL (7-18); CALCIUM 9.2 MG/DL (8.5-10.1); CARBON DIOXIDE 27 MMOL/L (21-32); CHLORIDE 101 MMOL/L (98-107); CREATININE 2.7 MG/DL (0.55-1.30); SODIUM 139 MMOL/L (136-145)
--- NOTE | 2018-10-24 07:54 | NUR ---
HAND-OFF: Report given to BONI Blevins. Pt stable..
[2018-10-24 08:00] VITALS: BP 110/75
[2018-10-24] MEDS ORDERED: HYDROcodone/Acetamin 5/325 tab ORAL PRN (08:00)
--- NOTE | 2018-10-24 08:00 | Nephrology Progress Note ---
Assessment/Plan Status: stable Assessment/Plan: 1. NADIR - Cr up to 2.7 - 2/2 cardiorenal syndrome and hypotension while being in a decompensated heart failure state with poor renal perfusion from atrial fibrillation with rapid ventricular response leading to ATN. 2. Atrial fibrillation with RVR. - Defer management to Cardiology. 3. Hypotension- decrease opiods 4. Congestive heart failure. Lasix 5. Hypertension. At this time, we will allow ADELITA inhibitor to continue unless renal function deteriorates - If Cr worsens will DC Lisinopril Subjective Date patient seen: Oct 24, 2018 Time patient seen: 07:57 ROS Limited/Unobtainable: Yes Allergies: Coded Allergies: No Known Allergies (Verified , 12/23/09) Subjective Patient sedated but arousable Objective Last 24 Hour Vital Signs Date Time Temp Pulse Resp B/P (MAP) Pulse Ox O2 Delivery O2 Flow Rate FiO2 10/24/18 04:00 99.0 79 18 86/49 (61) 97 10/24/18 04:00 99 10/24/18 00:00 99.0 93 20 136/80 (98) 97 10/24/18 00:00 81 10/23/18 21:31 83 146/82 10/23/18 21:00 Room Air 10/23/18 20:00 116 10/23/18 20:00 97.6 83 18 146/82 (103) 98 10/23/18 16:00 98.4 79 18 158/61 (93) 99 10/23/18 15:57 90 10/23/18 13:20 98.1 10/23/18 12:00 98.1 97 18 132/61 (84) 99 10/23/18 11:41 103 10/23/18 10:08 98.1 10/23/18 09:45 124/86 10/23/18 09:44 124/86 10/23/18 09:42 86 124/86 10/23/18 09:00 Room Air 10/23/18 08:00 98.1 86 20 124/86 (99) 100 Intake and Output 10/23/18 10/24/18 18:59 06:59 # Voids 6 4 # Bowel Movements 1 1 Laboratory Tests 10/23/18 11:00: Sodium Level 142, Potassium Level 4.5, Chloride Level 104, Carbon Dioxide Level 28, Anion Gap 10, Blood Urea Nitrogen 41H, Creatinine 2.5H, Estimat Glomerular Filtration Rate 23.9, Glucose Level 100, Calcium Level 9.6 10/24/18 05:00: Sodium Level 139, Potassium Level 4.0, Chloride Level 101, Carbon Dioxide Level 27, Anion Gap 11, Blood Urea Nitrogen 47H, Creatinine 2.7H, Estimat Glomerular Filtration Rate 21.8, Glucose Level 86, Calcium Level 9.2, White Blood Count 7.0 , Red Blood Count 4.08L, Hemoglobin 8.7L, Hematocrit 29.7L, Mean Corpuscular Volume 73L, Mean Corpuscular Hemoglobin 21.4L, Mean Corpuscular Hemoglobin Concent 29.4L, Red Cell Distribution Width 17.0H, Platelet Count 387, Mean Platelet Volume 5.4L, Neutrophils (%) (Auto) 62.3, Lymphocytes (%) (Auto) 16.0L , Monocytes (%) (Auto) 18.6H, Eosinophils (%) (Auto) 2.3, Basophils (%) (Auto) 0.8 Height (Feet): 5 Height (Inches): 3.00 Weight (Pounds): 257 General Appearance: lethargic EENT: normal ENT inspection Neck: normal alignment, supple Cardiovascular: normal rate, regular rhythm Respiratory/Chest: rhonchi - bilaterally Abdomen: non tender, soft Edema: 2+ Arm (L), 2+ Arm (R), 2+ Leg (L), 2+ Leg (R), 2+ Pedal (L), 2+ Pedal ( R), 2+ Generalized Ernesto Cyr MD Oct 24, 2018 08:00
--- NOTE | 2018-10-24 08:00 | NUR ---
NURSE NOTES: Pt asleep in bed difficult to awake, breathing easily on room air Dr Cyr at bedside. Pt angry when awakened to hard shaking. Pupils equal but slightly sluggish. Vital signs stable with Afib @ 81 on monitor. IV access left hand flushed with with 10 ml NS and locked. Walker at bedside. Bed left in low position, side rails up x 2 and call light left near pt's hand.
[2018-10-24] MEDS ORDERED: Lisinopril 20mg tab ORAL SCH (09:00)
[2018-10-24] MEDS: Aspirin EC 81mg tab ORAL SCH (09:21)
[2018-10-24] MEDS: Docusate 100mg cap ORAL SCH ×2 (09:22→18:00)
[2018-10-24] MEDS: Allopurinol 100mg Tab ORAL SCH (09:22)
[2018-10-24] MEDS: traMADol 50mg tab ORAL PRN (09:28)
[2018-10-24] MEDS: Xarelto 15mg tab ORAL SCH (09:41)
[2018-10-24 12:00] VITALS: BP 99/59
--- NOTE | 2018-10-24 12:11 | Cardiology Progress Note ---
Assessment/Plan Status: stable Assessment/Plan K Assessment/Plan Status: stable Assessment/Plan: Assessment Systolic CHF LVEF 35% 2017 Moderate mitral regurgitation Anemia Hepatitis C colonic diverticulosis Atrial fibrillation Plan: Systolic heart failure Repeat Echocardiogram -Aspirin -Metoprolol -Lisinopril held given NADIR -Lasix -May need lifevest/ICD -Outpatient viability study to evaluate for revascularization -Surgery consult for hernia -ID consult for diverticulitisK Atrial Fibrillation: Rate control wtih metoprolol Xarelto 15 mg daily no indication for cardioversion Subjective Cardiovascular: Reports: no symptoms Respiratory: Reports: no symptoms Gastrointestinal/Abdominal: Reports: no symptoms Genitourinary: Reports: no symptoms Subjective Was in AFIB RVR but now rate controlled, xarelto started, echo pending Objective Last 24 Hour Vital Signs Date Time Temp Pulse Resp B/P (MAP) Pulse Ox O2 Delivery O2 Flow Rate FiO2 10/24/18 09:22 110/75 10/24/18 09:21 77 110/75 10/24/18 09:00 Room Air 10/24/18 08:00 97.5 77 18 110/75 (87) 95 10/24/18 08:00 84 10/24/18 04:00 99.0 79 18 86/49 (61) 97 10/24/18 04:00 99 10/24/18 00:00 99.0 93 20 136/80 (98) 97 10/24/18 00:00 81 10/23/18 21:31 83 146/82 10/23/18 21:00 Room Air 10/23/18 20:00 116 10/23/18 20:00 97.6 83 18 146/82 (103) 98 10/23/18 16:00 98.4 79 18 158/61 (93) 99 10/23/18 15:57 90 10/23/18 13:20 98.1 General Appearance: no apparent distress, alert EENT: PERRL/EOMI, normal ENT inspection, TMs normal, pharynx normal Neck: normal alignment, supple, normal inspection, no JVD Rhythm: Afib Cardiovascular: normal peripheral pulses, normal rate, regularly irregular Respiratory/Chest: chest wall non-tender, lungs clear, normal breath sounds Abdomen: normal bowel sounds, non tender, soft, no organomegaly, no mass Extremities: normal range of motion, non-tender, normal inspection, no calf tenderness 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, no motor/sensory deficits Intake and Output 10/23/18 10/24/18 19:00 07:00 # Voids 6 4 # Bowel Movements 1 1 Laboratory Tests Test 10/24/18 05:00 White Blood Count 7.0 K/UL (4.8-10.8) Red Blood Count 4.08 M/UL (4.20-5.40) L Hemoglobin 8.7 G/DL (12.0-16.0) L Hematocrit 29.7 % (37.0-47.0) L Mean Corpuscular Volume 73 FL (80-99) L Mean Corpuscular Hemoglobin 21.4 PG (27.0-31.0) L Mean Corpuscular Hemoglobin Concent 29.4 G/DL (32.0-36.0) L Red Cell Distribution Width 17.0 % (11.6-14.8) H Platelet Count 387 K/UL (150-450) Mean Platelet Volume 5.4 FL (6.5-10.1) L Neutrophils (%) (Auto) 62.3 % (45.0-75.0) Lymphocytes (%) (Auto) 16.0 % (20.0-45.0) L Monocytes (%) (Auto) 18.6 % (1.0-10.0) H Eosinophils (%) (Auto) 2.3 % (0.0-3.0) Basophils (%) (Auto) 0.8 % (0.0-2.0) Sodium Level 139 MMOL/L (136-145) Potassium Level 4.0 MMOL/L (3.5-5.1) Chloride Level 101 MMOL/L (98-107) Carbon Dioxide Level 27 MMOL/L (21-32) Anion Gap 11 mmol/L (5-15) Blood Urea Nitrogen 47 mg/dL (7-18) H Creatinine 2.7 MG/DL (0.55-1.30) H Estimat Glomerular Filtration Rate 21.8 mL/min (>60) Glucose Level 86 MG/DL (74-106) Calcium Level 9.2 MG/DL (8.5-10.1) Microbiology Date/Time Source Procedure Growth Status 10/22/18 22:35 Blood Blood Culture - Preliminary NO GROWTH AFTER 24 HOURS Resulted 10/22/18 22:20 Blood Blood Culture - Preliminary NO GROWTH AFTER 24 HOURS Resulted Geovanny Cordon MD Oct 24, 2018 12:11
--- NOTE | 2018-10-24 13:00 | NUR ---
NURSE NOTES: Tried to awaken pt to take medication, would not waken until firm shaking. Pt angry at being awoken for medication, said "I'll take it when I'm awake," and then proceeded to drift off again. Upon calling pt with firm voice, pt awoke and expressed anger again. After taking medication pt noticed lunch tray was there and then yelled "Why didn't someone wake me up for the lunch tray."
[2018-10-24 16:00] VITALS: BP 105/72
--- NOTE | 2018-10-24 19:28 | NUR ---
NURSE NOTES: Received patient from BONI ESCOBAR. Will continue plan of care.
[2018-10-24 20:00] VITALS: BP 106/75
[2018-10-24] MEDS: HYDROcodone/Acetamin 5/325 tab ORAL PRN (22:45)
[2018-10-25] VITALS: BP 121/73
[2018-10-25 04:00] VITALS: BP 133/61
[2018-10-25] MEDS: traMADol 50mg tab ORAL PRN (04:47)
[2018-10-25 07:20] LABS: BASOPHILS % (AUTO) 0.9 % (0.0-2.0); EOSINOPHILS % (AUTO) 2.6 % (0.0-3.0); HEMATOCRIT 35.9 % (37.0-47.0); HEMOGLOBIN 10.6 G/DL (12.0-16.0); MEAN CORPUSCULAR VOLUME 73 FL (80-99); MONOCYTES % (AUTO) 10.4 % (1.0-10.0); NEUTROPHILS % (AUTO) 57.2 % (45.0-75.0); PLATELET COUNT 429 K/UL (150-450); RED BLOOD COUNT 4.92 M/UL (4.20-5.40); RED CELL DISTRIBUTION WIDTH 17.2 % (11.6-14.8); WHITE BLOOD COUNT 6.1 K/UL (4.8-10.8)
--- NOTE | 2018-10-25 07:20 | NUR ---
HAND-OFF: Report given to BONI ESCOBAR.
[2018-10-25 07:41] LABS: ANION GAP 9 mmol/L (5-15); BLOOD UREA NITROGEN 54 mg/dL (7-18); CALCIUM 9.4 MG/DL (8.5-10.1); CARBON DIOXIDE 28 MMOL/L (21-32); CHLORIDE 102 MMOL/L (98-107); CREATININE 2.7 MG/DL (0.55-1.30); POTASSIUM 4.3 MMOL/L (3.5-5.1); SODIUM 138 MMOL/L (136-145)
[2018-10-25 08:00] VITALS: BP 126/76
--- NOTE | 2018-10-25 08:00 | NUR ---
NURSE NOTES: Pt awake/alert sitting up at edge of bed breathing easily on room air, c/o siatica like pain right hip shooting down right leg. Vital signs stable with Afib @ 125 on monitor. IV access left hand flushed with with 10 ml NS and locked. Walker at bedside. Bed left in low position, side rails up x 2 and call light left near pt's hand.
--- NOTE | 2018-10-25 08:24 | Nephrology Progress Note ---
Assessment/Plan Status: stable Assessment/Plan: 1. NADIR - Cr still at 2.7 - 2/2 cardiorenal syndrome and hypotension - will DC ADELITA-I until renal function improves 2. Atrial fibrillation with RVR. HR 130 - Defer management to Cardiology. 3. Hypotension- decreased opiods 4. Congestive heart failure. Lasix increased TID 5. Hypertension. At this time, DC ADELITA inhibitor Subjective Date patient seen: Oct 25, 2018 Time patient seen: 08:22 ROS Limited/Unobtainable: No Allergies: Coded Allergies: No Known Allergies (Verified , 12/23/09) Subjective Patient with palpitations and still SOB Objective Last 24 Hour Vital Signs Date Time Temp Pulse Resp B/P (MAP) Pulse Ox O2 Delivery O2 Flow Rate FiO2 10/25/18 04:00 98.1 82 18 133/61 (85) 95 10/25/18 03:51 101 10/25/18 00:00 97.3 95 18 121/73 (89) 99 10/24/18 23:39 103 10/24/18 21:00 Room Air 10/24/18 20:13 62 98/69 10/24/18 20:00 97.3 66 20 106/75 (85) 97 10/24/18 19:32 104 10/24/18 16:00 101 10/24/18 16:00 97.8 90 16 105/72 (83) 96 10/24/18 12:00 78 10/24/18 12:00 97.9 71 16 99/59 (72) 95 10/24/18 09:22 110/75 10/24/18 09:21 77 110/75 10/24/18 09:00 Room Air Intake and Output 10/24/18 10/25/18 18:59 06:59 Intake Total 840 ml 500 ml Balance 840 ml 500 ml Intake Oral 840 ml 500 ml # Voids 4 3 # Bowel Movements 1 1 Laboratory Tests 10/25/18 05:00: White Blood Count 6.1, Red Blood Count 4.92, Hemoglobin 10.6L, Hematocrit 35.9L , Mean Corpuscular Volume 73L, Mean Corpuscular Hemoglobin 21.5L, Mean Corpuscular Hemoglobin Concent 29.5L, Red Cell Distribution Width 17.2H, Platelet Count 429, Mean Platelet Volume 5.1L, Neutrophils (%) (Auto) 57.2, Lymphocytes (%) (Auto) 29.0, Monocytes (%) (Auto) 10.4H, Eosinophils (%) (Auto) 2.6, Basophils (%) (Auto) 0.9, Sodium Level 138, Potassium Level 4.3, Chloride Level 102, Carbon Dioxide Level 28, Anion Gap 9, Blood Urea Nitrogen 54H, Creatinine 2.7H, Estimat Glomerular Filtration Rate 21.8, Glucose Level 104, Calcium Level 9.4 Height (Feet): 5 Height (Inches): 3.00 Weight (Pounds): 257 General Appearance: no apparent distress, alert EENT: normal ENT inspection Neck: normal alignment Cardiovascular: arrhythmia Respiratory/Chest: rhonchi - bilaterally Abdomen: non tender, soft Edema: 2+ Arm (L), 2+ Arm (R), 2+ Leg (L), 2+ Leg (R), 2+ Pedal (L), 2+ Pedal ( R), 2+ Generalized Ernesto Cyr MD Oct 25, 2018 08:24
[2018-10-25] MEDS: Docusate 100mg cap ORAL SCH ×2 (09:00→17:48)
[2018-10-25] MEDS: Xarelto 15mg tab ORAL SCH (09:11)
[2018-10-25] MEDS: Allopurinol 100mg Tab ORAL SCH (09:12)
[2018-10-25] MEDS: Aspirin EC 81mg tab ORAL SCH (09:12)
[2018-10-25 12:00] VITALS: BP 88/58
--- NOTE | 2018-10-25 13:06 | Cardiology Report ---
APPROVED REPORT EKG Measurement Heart [id number] Atrial fibrillation with rapid ventricular response with premature ventricular or aberrantly conducted complexes Right axis deviation Nonspecific intraventricular block Abnormal ECG
[2018-10-25 16:00] VITALS: BP 143/75
--- NOTE | 2018-10-25 19:29 | NUR ---
HAND-OFF: Report given to katlyn Cano.
--- NOTE | 2018-10-25 19:30 | NUR ---
NURSE NOTES: Pt awake/alert x4 sitting up at edge of bed breathing easily on room air, Vital signs stable with Afib @ 110 on monitor. IV access left hand flushed, patent, asymptomatic. Walker at bedside. Bed locked in lowest position, side rails up x 2 and call light within reach. will continue to monitor
[2018-10-25 20:00] VITALS: BP 110/74
[2018-10-25] MEDS: HYDROcodone/Acetamin 5/325 tab ORAL PRN (20:45)
[2018-10-26 04:00] VITALS: BP 90/60
[2018-10-26 06:00] VITALS: BP 90/60
[2018-10-26 06:17] LABS: ANION GAP 9 mmol/L (5-15); BLOOD UREA NITROGEN 53 mg/dL (7-18); CALCIUM 9.6 MG/DL (8.5-10.1); CARBON DIOXIDE 24 MMOL/L (21-32); CHLORIDE 101 MMOL/L (98-107); CREATININE 2.4 MG/DL (0.55-1.30); POTASSIUM 5.1 MMOL/L (3.5-5.1); SODIUM 134 MMOL/L (136-145)
--- NOTE | 2018-10-26 07:00 | NUR ---
NURSE NOTES: Nurse report given by BONI Moore. Patient is awake and about to eat breakfast. No s/s of acute distress of SOB. Patient denies pain. Bed at lowest position, break engaged and call light within reach. Walker is next to bedside. Patient requested for more food, I called the dietary to bring her some more. Will continue to monitor.
--- NOTE | 2018-10-26 07:22 | NUR ---
HAND-OFF: Report given to BONI Ramirez.
--- NOTE | 2018-10-26 07:29 | Nephrology Progress Note ---
Assessment/Plan Status: stable Assessment/Plan: 1. NADIR - Cr improved to 2.4 - 2/2 cardiorenal syndrome and hypotension - hold off ADELITA-I 2. Atrial fibrillation with RVR. HR 130----->98 - Defer management to Cardiology. - on Xarelto and Lopressor 3. Hypotension- Lopressor decreased 4. Congestive heart failure. Lasix TID Subjective Date patient seen: Oct 26, 2018 Time patient seen: 07:26 ROS Limited/Unobtainable: No Allergies: Coded Allergies: No Known Allergies (Verified , 12/23/09) Subjective Patient feeling little better Objective Last 24 Hour Vital Signs Date Time Temp Pulse Resp B/P (MAP) Pulse Ox O2 Delivery O2 Flow Rate FiO2 10/26/18 06:00 97.3 95 20 90/60 (70) 96 10/26/18 04:00 97.3 95 21 90/60 (70) 96 10/26/18 04:00 80 10/26/18 00:00 79 10/25/18 21:00 Room Air 10/25/18 20:41 88 110/74 10/25/18 20:00 91 10/25/18 20:00 97.3 88 21 110/74 (86) 96 10/25/18 16:00 101 10/25/18 16:00 97.3 101 22 143/75 (97) 99 10/25/18 12:00 103 10/25/18 12:00 97.9 88 23 88/58 (68) 100 10/25/18 09:12 82 133/61 10/25/18 09:00 Room Air 10/25/18 08:00 97.7 84 24 126/76 (93) 95 10/25/18 08:00 96 Intake and Output 10/25/18 10/26/18 19:00 07:00 Intake Total 500 ml Balance 500 ml Intake Oral 500 ml Laboratory Tests 10/26/18 05:10: Sodium Level 134L, Potassium Level 5.1, Chloride Level 101, Carbon Dioxide Level 24, Anion Gap 9, Blood Urea Nitrogen 53H, Creatinine 2.4H, Estimat Glomerular Filtration Rate 25.0, Glucose Level 80, Calcium Level 9.6 Height (Feet): 5 Height (Inches): 3.00 Weight (Pounds): 257 General Appearance: no apparent distress, alert EENT: normal ENT inspection Neck: normal alignment, supple Cardiovascular: regularly irregular Respiratory/Chest: lungs clear, normal breath sounds Abdomen: non tender, soft Edema: 1+ Arm (L), 1+ Arm (R), 1+ Leg (L), 1+ Leg (R), 1+ Pedal (L), 1+ Pedal ( R), 1+ Generalized Ernesto Cyr MD Oct 26, 2018 07:29
[2018-10-26 08:00] VITALS: BP 102/67
--- NOTE | 2018-10-26 08:16 | NUR ---
CASE MANAGEMENT:REVIEW 10/24/18 SI: CHF. AFIB W/RVR. NADIR 97.8 101 16 105/72 96% ON RA H/H-8.7/29.7 BUN+47 CR+2.7 IS: LISINOPRIL PO QD LOPRESSOR PO Q12 XARELTO PO QD ASA PO QD NEURONTIN PO TID : TELEMETRY STATUS DCP: FROM HOME 10/25/18 SI: CHF. AFIB W/RVR. NADIR 97.3 101 22 143/75 99% H/H-10.6/35.9 BUN+53 CR+2.4 IS: LISINOPRIL PO QD LOPRESSOR PO Q12 IV LASIX Q8HRS XARELTO PO QD ASA PO QD NEURONTIN PO TID : TELEMETRY STATUS DCP: FROM HOME 10/26/18 SI: CHF. AFIB W/RVR. NADIR 97.3 95 20 90/60 96% ON RA BUN+53 CR+2.4 IS: LISINOPRIL PO QD LOPRESSOR PO Q12 IV LASIX Q8HRS XARELTO PO QD ASA PO QD NEURONTIN PO TID : TELEMETRY STATUS DCP: FROM HOME
[2018-10-26] MEDS: Aspirin EC 81mg tab ORAL SCH (08:41)
[2018-10-26] MEDS: Docusate 100mg cap ORAL SCH (08:42)
[2018-10-26] MEDS: Allopurinol 100mg Tab ORAL SCH (08:42)
[2018-10-26] MEDS: Xarelto 15mg tab ORAL SCH (08:42)
[2018-10-26 08:43] VITALS: BP 102/67
[2018-10-26] MEDS: HYDROcodone/Acetamin 5/325 tab ORAL PRN (08:53)
[2018-10-26] MEDS ORDERED: Metoprolol Tartrate 50mg tab ORAL SCH (09:00)
--- NOTE | 2018-10-26 09:18 | Pulmonology Progress Note ---
Assessment/Plan Assessment/Plan Assessment/Plan: Assessment Systolic CHF LVEF 35% 2017 Moderate mitral regurgitation Anemia Hepatitis C colonic diverticulosis Atrial fibrillation Plan: Systolic heart failure -Aspirin -Metoprolol -Lisinopril -Lasix -May need lifevest/ICD; will refer to cardiology as outpt -Outpatient viability study to evaluate for revascularization -Surgery consult for hernia; outpt Dc home Subjective Interval Events: Feeling better; able to ambulate with walker; off O2 Constitutional: Reports: no symptoms HEENT: Repors: no symptoms Respiratory: Reports: no symptoms Cardiovascular: Reports: no symptoms Gastrointestinal/Abdominal: Reports: no symptoms Genitourinary: Reports: no symptoms Neurologic: Reports: no symptoms Allergies: Coded Allergies: No Known Allergies (Verified , 12/23/09) Objective Last 24 Hour Vital Signs Date Time Temp Pulse Resp B/P (MAP) Pulse Ox O2 Delivery O2 Flow Rate FiO2 10/26/18 08:43 88 102/67 10/26/18 08:00 97.7 88 18 102/67 (79) 93 10/26/18 06:00 97.3 95 20 90/60 (70) 96 10/26/18 04:00 97.3 95 21 90/60 (70) 96 10/26/18 04:00 80 10/26/18 00:00 79 10/25/18 21:00 Room Air 10/25/18 20:41 88 110/74 10/25/18 20:00 91 10/25/18 20:00 97.3 88 21 110/74 (86) 96 10/25/18 16:00 101 10/25/18 16:00 97.3 101 22 143/75 (97) 99 10/25/18 12:00 103 10/25/18 12:00 97.9 88 23 88/58 (68) 100 Intake and Output 10/25/18 10/26/18 19:00 07:00 Intake Total 500 ml Balance 500 ml Intake Oral 500 ml General Appearance: no acute distress HEENT: normocephalic Respiratory/Chest: chest wall non-tender Cardiovascular: normal peripheral pulses Abdomen: normal bowel sounds Laboratory Tests 10/26/18 05:10: Sodium Level 134L, Potassium Level 5.1, Chloride Level 101, Carbon Dioxide Level 24, Anion Gap 9, Blood Urea Nitrogen 53H, Creatinine 2.4H, Estimat Glomerular Filtration Rate 25.0, Glucose Level 80, Calcium Level 9.6 Current Medications Medications (Trade) Dose Ordered Sig/Florencio Route PRN Reason Start Time Stop Time Status Last Admin Dose Admin Acetaminophen/ Hydrocodone Bitart (Mclean 5/325) 1 tab Q12H PRN ORAL Severe Pain (Pain Scale 7-10) 10/24/18 08:15 10/31/18 07:59 10/26/18 08:53 Allopurinol (Zyloprim) 100 mg DAILY ORAL 10/23/18 09:00 11/22/18 08:59 10/26/18 08:42 Aspirin (Ecotrin) 81 mg DAILY ORAL 10/23/18 09:00 11/22/18 08:59 10/26/18 08:41 Carisoprodol (Soma) 350 mg BID PRN ORAL Muscle Spasm 10/23/18 02:15 11/22/18 02:14 Docusate Sodium (Colace) 100 mg TWICE A DAY ORAL 10/23/18 09:00 11/22/18 08:59 10/26/18 08:42 Furosemide (Lasix) 40 mg Q8HR IV 10/25/18 14:00 11/22/18 13:59 10/26/18 06:05 Gabapentin (Neurontin) 400 mg THREE TIMES A DAY ORAL 10/23/18 09:00 11/22/18 08:59 10/26/18 08:41 Hydroxyzine HCl (Vistaril) 10 mg Q8H PRN ORAL Itching 10/23/18 02:00 11/22/18 01:59 Metoprolol Tartrate (Lopressor) 50 mg EVERY 12 HOURS ORAL 10/26/18 09:00 11/22/18 20:59 Nicotine (Nicoderm) 1 patch Q24H TDERMAL 10/23/18 21:00 11/22/18 20:59 Ondansetron HCl (Zofran) 8 mg BID PRN ORAL Nausea & Vomiting 10/23/18 02:00 11/22/18 01:59 Rivaroxaban (Xarelto) 15 mg DAILY ORAL 10/23/18 19:28 11/22/18 19:27 10/26/18 08:42 Tramadol HCl (Ultram) 50 mg TIDPRN PRN ORAL PAIN 1-6 10/23/18 20:15 10/30/18 20:14 10/25/18 04:47 Harshal Emerson MD Oct 26, 2018 09:18
--- NOTE | 2018-10-26 09:30 | NUR ---
NURSE NOTES: Patient' is cleared to discharge per Dr. Garcia's order. Patient's discharge package is finalized, went over with patient and sign by patient. Patient's belonging list went over with patient and signed by her at bedside. Patient's home medications are picked up from [facility] and signed by BONI Carney. Nurse went over the home med with patient at bed side and she stores them in her own red bag. Dr. Garcia has prescriptions orders that are faxed to the pharmacy across [facility] and they will bring to the patient when the medications are ready. Patient agree she will wait for the medications before leaving home. Patient also stated: "she will go home by herself by bus." Nurse went to watch supervisor to get 2 tokens for her bus.
--- NOTE | 2018-10-26 09:45 | NUR ---
NURSE NOTES: Nurse tried to call next of kin and person of contact to notify the patient's getting discharged today but unreachable. Next of kin was picked up by estonian speaking person only and he said "it's wrong phone number." Nurse asked patient to confirm and who I should call to notify. patient refused to give the information and told nurse not to contact next of kin because she said: "i don't want him to participate in my care." She told nurse she will take bus home.
--- NOTE | 2018-10-26 11:40 | NUR ---
*-* INSURANCE *-* ALL CLINICAL AND REVIEW HAVE BEEN FAXED TO: YANI KIM P: [phone] F: [phone] (FAX CLINICALS)
--- NOTE | 2018-10-26 14:06 | NUR ---
NURSE NOTES: Patient's discharged out of the hospital and go home by herself. monitor worker removed, IV is removed and ID band is moved. Patient received medication from the pharmacy across the street from [facility] Patient's hard copy prescription is given to the forest technician from [facility] pharmacy across the street.
--- NOTE | 2018-10-26 14:09 | NUR ---
NURSE NOTES: Patient's addemend from getting her ID band removed. and Jose RN able to removed her ID band. Patient's off the unit at 1402. Patient's in stable condition, no s/s distress or SOB. Patient used walker to ambulate.
--- NOTE | 2018-10-26 14:55 | NUR ---
Social Service Note SW received a call from patient's friend Jossie Askew [phone] post discharge indicating patient could not return to her home upon discharge. Jossie states she left this same message for patient on her cell phone via voice mail and text. Patient was recently evicted from her apartment.
--- NOTE | 2018-10-26 20:01 | Cardiology Report ---
APPROVED REPORT EXAM: Two-dimensional and M-mode echocardiogram with Doppler and color Doppler. INDICATION Congestive Heart Failure M-Mode DIMENSIONS IVSd1.3 (0.7-1.1cm)Left Atrium (MM)5.0 (1.6-4.0cm) LVDd4.2 (3.5-5.6cm)Aortic Root2.2 (2.0-3.7cm) PWd0.6 (0.7-1.1cm)Aortic Cusp Exc.1.7 (1.5-2.0cm) LVDs4.8 (2.5-4.0cm) PWs1.0 cm Normal left ventricular chamber size. Global left ventricular hypokinesis except the septal wall which is dyskinetic. Left ventricular ejection fraction is estimated to be 40-45%. Study quality precludes accurate assessment of regional wall motion. No evidence of left ventricular hypertrophy. Trivial posterior pericardial effusion. Moderate left atrial enlargement. Right cardiac chamber sizes are moderately enlarged. Focal aortic valve sclerosis with adequate cusp excursion. Thickened mitral valve leaflets with normal excursion. Mitral annulus and aortic root calcification. Pulmonic valve not well visualized. Normal tricuspid valve structure. IVC measured at 1.5 cm without physiologic collapse. A color flow and spectral Doppler study was performed and revealed: No aortic regurgitation. Mild mitral regurgitation. Can not determine left ventricular diastolic function based on mitral diastolic velocities due to atrial fibrillation. Moderate tricuspid regurgitation. Tricuspid systolic velocities suggests peak right ventricular systolic pressure of 58 mmHg, consistent with moderate to severe pulmonary hypertension.
--- NOTE | 2018-10-26 20:45 | Cardiology Report ---
APPROVED REPORT EKG Measurement Heart [id number] Atrial fibrillation with rapid ventricular response Right axis deviation Nonspecific intraventricular block T wave abnormality, consider inferolateral ischemia Abnormal ECG
--- NOTE | 2018-10-27 11:10 | Discharge Summary ---
Discharge Summary Discharge Summary _ DATE OF ADMISSION: 10/22/2017 DATE OF DISCHARGE: 10/26/2018 DISCHARGED BY: Dr. Emerson REASON FOR ADMISSION: 57 years old female with past medical history of hypertension, congestive heart failure, morbid obesity, presented to hospital with complaints of bilateral feet swelling. Patient was recently at [facility] and subsequently was discharged. Patient also reported history of sleep apnea , currently waiting for a sleep study to be done. Upon evaluation in emergency department pulse oximetry was stable on room air. Laboratory work-up revealed no leukocytosis hemoglobin 9, hematocrit 29.4. Stable electrolytes. BUN 36 creatinine 2.2. Glucose 100. Lactic acid 2.9. Total bili 1.2, direct bili 0.7. AST 57, ALT 28. Troponin- 0.048, pro BNP > 35,000. EKG revealed atrial fibrillation with heart rate of 115 right axis deviation and nonspecific intraventricular block . Patient received IV metoprolol for rate control. Heart rate stabilized. Franz was inserted. Patient was admitted for further management. Chest x-ray revealed cardiomegaly, atelectasis of the right lung base. Mild interstitial edema. CT of the abdomen and pelvis demonstrated bulky left inguinal, iliac chain and retroperitoneal lymphadenopathy. Borderline fat-containing ventral hernia. Marked skin thickening of the pannus concerning for possible cellulitis. Right basilar atelectasis possible colonic diverticulosis, cardiomegaly. CONSULTANTS: rhinologist Dr. Cordon senior geologist Dr.De Mo [facility] COURSE: Patient admitted to telemetry floor. Medical Records Field Technician and senior geologist followed. Patient started on diuresis with close monitoring of volumes and cardiorenal parameters. Echocardiogram demonstrated global left ventricular hypokinesis except the septal wall , which was dyskinetic. Left ventricular ejection fraction estimated to be 40 to 45%. No evidence of left ventricular hypertrophy. Moderate tricuspid regurgitation. Right ventricular systolic pressure of 58 consistent with severe pulmonary hypertension. Guideline directed medical therapy for congestive heart failure with systolic dysfunction provided with beta-roxana and Lasix. ADELITA inhibitor/lisinopril was held due to acute kidney injury. Antiplatelet therapy with aspirin continued. Medical Records Field Technician recommended to evaluate for need of LifeVest . Ejection fraction improved from prior in 2017 35% up to 40 to 45% 3. Heart rate was controlled with the beta-roxana/prolonged, and patient started on Xarelto for prophylaxis of anti-embolic stroke. No indication for cardioversion. Telemetry showed atrial fibrillation with controlled rate. Blood pressure was closely monitored. Beta-roxana dose decreased . Supplemental oxygen was on board as needed to keep pulse oximetry above 92%. Pulse oximetry was stable on room air. Patient was counseled on abstinence from smoking. Nicotine patch provided. Per senior geologist , patient developed acute kidney injury secondary to cardiorenal syndrome and hypotension, while being in decompensated heart failure state with poor renal perfusion from atrial fibrillation with rapid ventricular response. He developed multifactorial acute tubular necrosis. Renal parameters and electrolytes were closely monitored. CT of the abdomen and pelvis did not show renal abnormality. Renal function was closely monitored. Aggressive control of heart rate and hemodynamic stability provided. Medical Records Field Technician also recommended outpatient viability study to evaluate for revascularization. Pain management was addressed as needed. Bowel regimen instituted. Patient clinically stabilized and was ready for discharge home. Outpatient follow-up with rhinologist and surgeon for hernia repair. FINAL DIAGNOSES: Atrial fibrillation with rapid ventricular response Congestive heart failure with systolic dysfunction Acute kidney injury secondary to cardiorenal syndrome Lactic acidosis Multifactorial acute tubular necrosis Mitral regurgitation Anemia Hepatitis C Colonic diverticulosis Severe pulmonary HTN DISCHARGE MEDICATIONS: See Medication Reconciliation list. DISCHARGE INSTRUCTIONS: Patient was discharged home. Follow up with primary care provider in one week. Outpatient follow-up with rhinologist and surgeon for hernia repair recommended. I have been assigned to dictate discharge summary for this account. I was not involved in the patient's management. Heydi Ellison NP Oct 27, 2018 11:10
--- NOTE | 2018-10-27 13:53 | NUR ---
*-* INSURANCE *-* DISCHARGE SUMMARY BEEN FAXED TO: YANI KIM P: [phone] F: [phone] (FAX CLINICALS)
--- NOTE | 2018-10-28 12:48 | NUR ---
*-* INSURANCE *-* [facility] F:[phone]
== END 2018-10-26 14:00 | disposition home or self-care (01) | DRG 194 ==
LOC: EDBD 19:42 → EDBEDREQ 20:12 → EMR 20:27 → 2E 22:40 → EDBEDREQ 22:51 → EDBEDREQSVC 23:32 → EDBEDREQ 10-23 00:59
DX: I13.0 Hypertensive heart and chronic kidney disease with heart failure and stage 1 through stage 4 chronic kidney disease, or unspecified chronic kidney disease (principal); N17.0 Acute kidney failure with tubular necrosis; E87.2 Acidosis; I95.9 Hypotension, unspecified; I27.20 Pulmonary hypertension, unspecified; E66.01 Morbid (severe) obesity due to excess calories; I48.91 Unspecified atrial fibrillation; I50.23 Acute on chronic systolic (congestive) heart failure; Z68.42 Body mass index [BMI] 45.0-49.9, adult; B19.20 Unspecified viral hepatitis C without hepatic coma; K52.89 Other specified noninfective gastroenteritis and colitis; N18.9 Chronic kidney disease, unspecified; I34.0 Nonrheumatic mitral (valve) insufficiency; K57.90 Diverticulosis of intestine, part unspecified, without perforation or abscess without bleeding; Z71.3 Dietary counseling and surveillance; Z79.82 Long term (current) use of aspirin; D64.9 Anemia, unspecified; G47.30 Sleep apnea, unspecified
CPT/HCPCS: 36415; 71045; 74176; 80048; 80053; 82248; 82550; 82553; 83605; 83690; 83880; 84484; 85025; 85610; 85730; 87040; 93005; 93306; 94640; 94664; 96365; 96375; 96376; 99291; J7620

== ENCOUNTER 2018-10-29 17:47 | Emergency (ER) | payer MEDICAID ==
[~2018-10-29] VITALS: Ht 162.6 cm; Wt 97.5 kg
[~2018-10-29 17:47] MED LIST changes: +ASPIRIN EC81 MG ORAL; +CARVEDILOL6.25 MG ORAL; +COLACE100 MG ORAL; +FUROSEMIDE40 MG ORAL; +GABAPENTIN400 MG ORAL; +LISINOPRIL30 MG ORAL; +ZOFRAN4 M3 ORAL
[2018-10-29 17:55] VITALS: BP 108/74
--- NOTE | 2018-10-29 17:55 | Emergency Room Report ---
History of Present Illness General Chief Complaint: Dyspnea/Respdistress Source: Medical Record Present Illness HPI Patient is a 57-year-old female presented after increased respiratory distress. Patient had prior history of congestive heart failure as well as pulmonary hypertension. She had recently been discharged from the hospital after increased shortness of breath. She had been discharged on Lasix 40 mg. She had been noted to have persistent lower extremity swelling as well as worsened difficulty with breathing worse with supine position. She had prior history of IV drug use. She was noted to have prior history of atrial fibrillation and hepatitis C Allergies: Coded Allergies: No Known Allergies (Verified , 12/23/09) Patient History Reviewed Nursing Documentation: PMH: Agreed; PSxH: Agreed Nursing Documentation-PMH Past Medical History: No History, Except For Hx Cardiac Problems: Yes Hx Hypertension: Yes Hx Asthma: Yes Hx Diabetes: No Hx Cancer: No Hx Headaches: Yes - migraines Hx Numbness: Yes - both legs Review of Systems All Other Systems: negative except mentioned in HPI Physical Exam Vital Signs Date Time Temp Pulse Resp B/P (MAP) Pulse Ox O2 Delivery O2 Flow Rate FiO2 10/29/18 17:49 99.7 122 21 108/74 (85) 94 Room Air General Appearance: obese, Chronically Ill ENT: hearing grossly normal Neck: limited range of motion Respiratory: wheezing Cardiovascular #1: tachycardia, edema Gastrointestinal: tenderness - mild diffuse, hernia Musculoskeletal: decreased range of motion, swelling Neurologic: normal inspection, alert, oriented x3, responsive Psychiatric: normal inspection Skin: warm/dry Medical Decision Making Diagnostic Impression: Primary Impression: CHF (congestive heart failure) Additional Impressions: Pulmonary hypertension Atrial fibrillation with RVR Hernia ER Course Patient present for shortness of breath. Differential included but was not limited to anemia, pneumonia, pneumothorax, myocardial infarction, pericardial effusion, congestive heart failure, acidosis. Because of complexity of patient' s case laboratory testing and imaging studies were ordered.Patient was noted to have significant shortness of breath initially. She was given IV Lasix as well as IV Cardizem due to A. fib with rapid ventricular response. She is given IV steroids as well as breathing treatment. Patient was noted to have some improvement after medications. EKG interpreted by me showed atrial fibrillation with rapid ventricular response. Patient's initial troponin was noted to be somewhat elevated. BNP was greater than 20,000. Patient's creatinine was noted to be somewhat improved compared to her baseline.Patient was also given aspirin due to elevated troponin.Patient's heart rate was noted to have some improvement after medications. Due to patient's prior history of renal disease digoxin will not be initiated.Patient was noted to have some lymphadenopathy on prior CT imaging which will require further evaluation. Patient was discussed with Dr. Egan from [facility].Patient will be transferred to [facility] due to possible need for cardiac catheterization. Labs Test 10/29/18 18:00 White Blood Count 6.4 K/UL (4.8-10.8) Red Blood Count 4.20 M/UL (4.20-5.40) Hemoglobin 8.8 G/DL (12.0-16.0) Hematocrit 29.7 % (37.0-47.0) Mean Corpuscular Volume 71 FL (80-99) Mean Corpuscular Hemoglobin 20.9 PG (27.0-31.0) Mean Corpuscular Hemoglobin Concent 29.5 G/DL (32.0-36.0) Red Cell Distribution Width 16.5 % (11.6-14.8) Platelet Count 393 K/UL (150-450) Mean Platelet Volume 4.7 FL (6.5-10.1) Neutrophils (%) (Auto) 54.1 % (45.0-75.0) Lymphocytes (%) (Auto) 22.2 % (20.0-45.0) Monocytes (%) (Auto) 18.0 % (1.0-10.0) Eosinophils (%) (Auto) 4.6 % (0.0-3.0) Basophils (%) (Auto) 1.2 % (0.0-2.0) Sodium Level 143 MMOL/L (136-145) Potassium Level 3.5 MMOL/L (3.5-5.1) Chloride Level 106 MMOL/L (98-107) Carbon Dioxide Level 30 MMOL/L (21-32) Anion Gap 7 mmol/L (5-15) Blood Urea Nitrogen 33 mg/dL (7-18) Creatinine 1.5 MG/DL (0.55-1.30) Estimat Glomerular Filtration Rate 43.0 mL/min (>60) Glucose Level 125 MG/DL (74-106) Lactic Acid Level 2.00 mmol/L (0.4-2.0) Calcium Level 9.0 MG/DL (8.5-10.1) Total Bilirubin 0.6 MG/DL (0.2-1.0) Aspartate Amino Transf (AST/SGOT) 49 U/L (15-37) Alanine Aminotransferase (ALT/SGPT) 21 U/L (12-78) Alkaline Phosphatase 74 U/L (46-116) Troponin I 0.574 ng/mL (0.000-0.056) Pro-B-Type Natriuretic Peptide 95982 pg/mL (0-125) Total Protein 8.4 G/DL (6.4-8.2) Albumin 2.3 G/DL (3.4-5.0) Globulin 6.1 g/dL Albumin/Globulin Ratio 0.4 (1.0-2.7) Thyroid Stimulating Hormone (TSH) 0.749 uiU/mL (0.358-3.740) EKG Diagnostic Results Rate: tachycardiac Rhythm: other - Atrial fibrillation ST Segments: no acute changes ASA given to the pt in ED: Yes Rhythm Strip Diag. Results EP Interpretation: yes Rhythm: no PVC's, other - aFibrillation rapid ventricular response Last Vital Signs Date Time Temp Pulse Resp B/P (MAP) Pulse Ox O2 Delivery O2 Flow Rate FiO2 10/29/18 17:49 99.7 122 21 108/74 (85) 94 Room Air Status: improved Disposition: XFER T-COUNTS INCLUDE 234 BEDS AT THE [facility] Condition: Stable Steven Franco MD Oct 29, 2018 17:55
--- NOTE | 2018-10-29 17:55 | NUR ---
ED Nurse Note: pt brought by 68 from home due to SOB for while. labored breathing noted. pt able to speak full sentence without difficulty. non-stop talking. AAO x4. respirations even. intermittent dry cough noted. edema noted on both legs. whoozing noted on right lower leg. ambulatory with walker. on senior partner. ekg done at the bed side.
[2018-10-29] MEDS ORDERED: Albuterol/Ipratropium 3ml neb HHN ONE (18:00)
[2018-10-29] MEDS ORDERED: Nitroglycerin Subl 0.4mg tab SL PRN (18:00)
[2018-10-29] MEDS ORDERED: Solu-MEDROL 125mg Inj IVP ONE (18:00)
[2018-10-29] MEDS ORDERED: HYDROCHLOROTHIA25 MG ORAL (18:02)
[2018-10-29] MEDS ORDERED: LISINOPRIL2.5 MG ORAL (18:02)
[2018-10-29] MEDS ORDERED: ZOFRAN4 M3 ORAL (18:04)
[2018-10-29 18:28] LABS: BASOPHILS % (AUTO) 1.2 % (0.0-2.0); EOSINOPHILS % (AUTO) 4.6 % (0.0-3.0); HEMATOCRIT 29.7 % (37.0-47.0); HEMOGLOBIN 8.8 G/DL (12.0-16.0); LYMPHOCYTES % (AUTO) 22.2 % (20.0-45.0); MEAN CORPUSCULAR VOLUME 71 FL (80-99); NEUTROPHILS % (AUTO) 54.1 % (45.0-75.0); PLATELET COUNT 393 K/UL (150-450); RED CELL DISTRIBUTION WIDTH 16.5 % (11.6-14.8); WHITE BLOOD COUNT 6.4 K/UL (4.8-10.8)
--- NOTE | 2018-10-29 18:29 | NUR ---
ED Nurse Note: bp went down to 99/65mmhg. Dr. Franco notified. darian montesinos.
[2018-10-29 18:31] LABS: ANION GAP 7 mmol/L (5-15); BLOOD UREA NITROGEN 33 mg/dL (7-18); CARBON DIOXIDE 30 MMOL/L (21-32); CHLORIDE 106 MMOL/L (98-107); CREATININE 1.5 MG/DL (0.55-1.30); POTASSIUM 3.5 MMOL/L (3.5-5.1); SODIUM 143 MMOL/L (136-145)
[2018-10-29 18:45] LABS: ALANINE AMINOTRANSFERASE 21 U/L (12-78); ALBUMIN 2.3 G/DL (3.4-5.0); ALBUMIN/GLOBULIN RATIO 0.4 (1.0-2.7); ALKALINE PHOSPHATASE 74 U/L (46-116); ASPARTATE AMINO TRANSFERASE 49 U/L (15-37); BILIRUBIN,TOTAL 0.6 MG/DL (0.2-1.0)
[2018-10-29] MEDS ORDERED: dilTIAZem HCl 25mg/5ml Inj IVP ONE (18:45)
[2018-10-29] MEDS ORDERED: Aspirin Baby 81mg ORAL ONE (19:00)
--- NOTE | 2018-10-29 19:08 | NUR ---
HAND-OFF: Report given to BONI Ramirez. endorsed pending urine sample and lactic reflux draw.
--- NOTE | 2018-10-29 20:00 | NUR ---
ED Nurse Note: Pt refused Lasix and Tylenol meds and ststes she only wants pain med. Provided risk and benefits x 3times still refused. Inform ADRIA.
[2018-10-29] MEDS ORDERED: Acetaminophen 500mg (ES) tab ORAL ONE (20:15)
[2018-10-29] MEDS ORDERED: traMADol 50mg tab ORAL ONE (20:15)
--- NOTE | 2018-10-29 20:30 | NUR ---
ED Nurse Note: Repect Lactic acid sent to lab.
[2018-10-29 21:20] VITALS: BP 91/52
[2018-10-29 22:00] VITALS: BP 95/60
--- NOTE | 2018-10-29 22:00 | NUR ---
ED Nurse Note: [facility] bean picker Pt. Pt is AO x 4times, VSS, on room air no distress. All belongings given to EMS and Pt. Report given to EMS Leonard Ferraro.
--- NOTE | 2018-10-29 22:10 | NUR ---
ED Nurse Note: Report given to [facility] MILLY RN Juan Carlos. Pt will arrive in 40 minutes.
[2018-10-29 22:47] VITALS: BP 95/60
--- NOTE | 2018-10-30 08:47 | Diagnostic Imaging Report ---
Indication: Shortness of breath Technique: One view of the chest Comparison: 10/22/2018 Findings: The heart is markedly enlarged. There is stable atelectasis versus scar at the right lung base. There is bilateral pulmonary venous congestion again demonstrated, slightly worse than on the previous exam. Impression: Cardiomegaly Bilateral pulmonary venous congestion, increased from prior study of 10/22/2018 Right basilar atelectasis versus scarring
== END 2018-10-29 22:48 ==
LOC: EDBD 17:47 → EMR 18:15 → EDBEDREQ 18:55 → EMR 22:48
DX: I50.9 Heart failure, unspecified (principal); I10 Essential (primary) hypertension; J45.909 Unspecified asthma, uncomplicated; I27.20 Pulmonary hypertension, unspecified; I48.91 Unspecified atrial fibrillation
CPT/HCPCS: 36415; 71045; 80053; 83605; 83880; 84443; 84484; 85025; 85651; 86850; 86900; 86901; 87040; 93005; 94640; 94664; 96374; 96375; 99285; J1940; J2930; J7620

== ENCOUNTER 2018-11-06 21:49 | Emergency (ER) | payer MEDICAID ==
[~2018-11-06] VITALS: Ht 160 cm; Wt 115.2 kg
[2018-11-06 21:49] VITALS: BP 130/90
[~2018-11-06 21:49] MED LIST changes: +LISINOPRIL2.5 MG ORAL
--- NOTE | 2018-11-06 21:51 | NUR ---
ED Nurse Note: pt brought in by [employer] via gurney. C/O sob. sp02 97 % ins RA. VSS. pt also has dry cough.
[2018-11-06] MEDS ORDERED: Ipratropium 0.02% Inh Soln 2.5ml UD HHN ONE (22:30)
[2018-11-06] MEDS ORDERED: Ketorolac 30mg Inj IV ONE (22:30)
--- NOTE | 2018-11-06 22:30 | Emergency Room Report ---
History of Present Illness General Chief Complaint: Upper Respiratory Illness Source: Patient Present Illness HPI HPI: 57-year-old female with a history of atrial fibrillation, COPD, CHF, obesity, hypertension, hyperlipidemia presents for evaluation of shortness of breath. Patient states she has had a chronic cough for several years always has been exacerbated over the past week or so. She notes worsening lower extremity pedal edema, productive phlegm, uncertain about fevers. States she came today because she was coughing so hard it was causing her abdominal pain. She denies any vomiting, diarrhea, dysuria or hematuria. Recently seen in the emergency department for CHF exacerbation. Says she has been compliant with Lasix though she notes worsening lower extremity edema and weeping. PMH: Hypertension, pulmonary hypertension, obesity, CHF, COPD PSH: Multiple abdominal surgeries Allergies: Denies Social Hx: Tobacco use, denies drug or alcohol use Allergies: Coded Allergies: No Known Allergies (Verified , 12/23/09) Patient History Last Menstrual Period: n/a Nursing Documentation-PMH Past Medical History: No Stated History Hx Cardiac Problems: Yes Hx Hypertension: Yes Hx Asthma: Yes Hx Diabetes: No Hx Cancer: No Hx Headaches: Yes - migraines Hx Numbness: Yes - both legs Review of Systems All Other Systems: negative except mentioned in HPI Physical Exam Vital Signs Date Time Temp Pulse Resp B/P (MAP) Pulse Ox O2 Delivery O2 Flow Rate FiO2 11/06/18 21:46 97.9 92 18 122/92 (102) 97 Room Air 11/06/18 21:49 97 . General: Awake and alert, insistently coughing, sitting upright in the gurney HEENT: NC/AT. EOMI. dry mucous membranes Neck: Supple, trachea midline Chest Wall: No tenderness, no deformity Cardiovascular: Irregularly irregular rhythm. Normal rate. Resp: Persistently coughing throughout the exam. Inspiratory respiratory wheezes bilaterally. Abdomen: Obese abdomen, multiple surgical scars which are clean dry and intact. Skin: Multiple scars over the abdomen are clean dry and intact MSK: 3+ lower extremity pitting edema distal to the knees Neuro: Awake and alert. Mentating appropriately. Medical Decision Making ER Course 57-year-old female with a history of atrial fibrillation, COPD, CHF presents for evaluation of shortness of breath. Differential includes but is not limited to pneumonia, bronchitis, COPD exacerbation, CHF exacerbation, ACS, asthma exacerbation. She appears to be fluid overload clinically and is in rapid atrial fibrillation on monitor and for my exam. We will give a empiric dose of Lasix but will also treat for possible COPD with breathing treatment. Cardizem ordered. EKG, chest x-ray, labs including cardiac enzymes and BN peptide are sent. She may require admission though currently for atrial fibrillation with RVR however she is not hypoxic and in no respiratory distress at this time. EKG Diagnostic Results EKG Time: 22:50 EP Interpretation: A. fib with RVR Rate: tachycardiac Rhythm Strip Diag. Results Rhythm Strip Time: 22:50 EP Interpretation: yes Rate: 180s Rhythm: other - Atrial fibrillation rapid ventricular response Chest X-Ray Diagnostic Results Chest X-Ray Diagnostic Results : # of Views/Limited/Complete: 1 View Indication: Shortness of Breath EP Interpretation: Yes Interpretation: no consolidation Impression: Other - Bilateral vascular congestion, cardiomegaly Electronically Signed by: Electronically signed by Dr. Alphonse Milligan Reevaluation Time: 00:30 Last Vital Signs Date Time Temp Pulse Resp B/P (MAP) Pulse Ox O2 Delivery O2 Flow Rate FiO2 11/06/18 21:49 97.9 93 17 130/90 97 Room Air 97 Status: improved Reevaluation Impression Heart rate improved into the 115's. Patient is no longer having any significant respiratory issues. No obvious consolidation on chest x-ray though there is some slight vascular congestion bilaterally and cardiomegaly consistent with the patient's history of CHF. Labs are pending. She did receive 40 mg IV Lasix empirically and is diuresing. She is denying any chest pain or discomfort at this time. 0150: Labs show an elevated creatinine at 2.4 up from 1.5 last week on her previous visit. Peptide is elevated greater than 35,000 and and while the troponin is slightly elevated at 0.4 this is decreased from the patient's prior presentation 1 week ago. Discussed with Dr. Mccray of [facility] and the patient will be transferred to [facility] for management of CHF, NADIR, rapid atrial fibrillation which is now been controlled after 1 dose of IV Cardizem. Patient is stable for transfer. She understands and agrees with this treatment plan. Please note that this report is being documented using [employer] technology. This can lead to erroneous entry secondary to incorrect interpretation by the dictating instrument. Disposition: XFER SHT-TRM HOSP Condition: Improved Alphonse Milligan MD Nov 06, 2018 22:30
[2018-11-06] MEDS: Albuterol ud Inhalation HHN SCH ×3 (22:31→23:20)
--- NOTE | 2018-11-06 22:45 | NUR ---
ED Nurse Note: pt noted with disruptive behavior yelling, screaming and cursing at staff,
--- NOTE | 2018-11-06 23:00 | NUR ---
ED Nurse Note: attempted to get blood draw from pt and py is refusing. explained risk and benefit.
--- NOTE | 2018-11-06 23:08 | NUR ---
ED Nurse Note: pt took off all leads and BP cuff. explained risk and benefits. pt stated " i dont give a fuck"
--- NOTE | 2018-11-06 23:12 | NUR ---
ED Nurse Note: pt started cursing and screaming loudly. security was called.
[2018-11-06] MEDS ORDERED: dilTIAZem HCl 25mg/5ml Inj IVP ONE (23:15)
--- NOTE | 2018-11-06 23:19 | NUR ---
ED Nurse Note: with the supervission and assist of the security, leads and BP cuff were able to don back to pt.
--- NOTE | 2018-11-06 23:19 | Diagnostic Imaging Report ---
EXAM: XR Chest, 1 View CLINICAL HISTORY: SOB TECHNIQUE: Frontal view of the chest. COMPARISON: 10/29/2018. FINDINGS: Lungs: Mild pulmonary vascular congestion/edema. No focal consolidation. Pleural space: Unremarkable. No pneumothorax. Heart: Marked cardiomegaly. Cannot exclude pericardial effusion. Mediastinum: Unremarkable. Bones/joints: Unremarkable. IMPRESSION: 1. Mild pulmonary vascular congestion/edema. No focal consolidation. 2. Marked cardiomegaly. Cannot exclude pericardial effusion.
[2018-11-06 23:51] LABS: BASOPHILS % (AUTO) 0.9 % (0.0-2.0); EOSINOPHILS % (AUTO) 0.3 % (0.0-3.0); HEMATOCRIT 30.6 % (37.0-47.0); HEMOGLOBIN 9.2 G/DL (12.0-16.0); LYMPHOCYTES % (AUTO) 17.3 % (20.0-45.0); MEAN CORPUSCULAR VOLUME 71 FL (80-99); MONOCYTES % (AUTO) 17.5 % (1.0-10.0); NEUTROPHILS % (AUTO) 64.1 % (45.0-75.0); PLATELET COUNT 409 K/UL (150-450); RED BLOOD COUNT 4.34 M/UL (4.20-5.40); RED CELL DISTRIBUTION WIDTH 17.8 % (11.6-14.8); WHITE BLOOD COUNT 8.9 K/UL (4.8-10.8)
[2018-11-07] VITALS: BP 145/84
[2018-11-07 00:20] LABS: ALANINE AMINOTRANSFERASE 21 U/L (12-78); ALKALINE PHOSPHATASE 64 U/L (46-116); ANION GAP 7 mmol/L (5-15); ASPARTATE AMINO TRANSFERASE 54 U/L (15-37); BILIRUBIN,TOTAL 1.7 MG/DL (0.2-1.0); CARBON DIOXIDE 26 MMOL/L (21-32); CHLORIDE 102 MMOL/L (98-107); CKMB 0.9 NG/ML (0.0-3.6); CREATINE KINASE 44 U/L (26-308); POTASSIUM 4.3 MMOL/L (3.5-5.1); SODIUM 135 MMOL/L (136-145)
[2018-11-07 00:32] LABS: ALBUMIN 2.7 G/DL (3.4-5.0); CALCIUM 9.5 MG/DL (8.5-10.1); CREATININE 2.4 MG/DL (0.55-1.30)
[2018-11-07 00:33] LABS: BILIRUBIN,DIRECT 1.1 MG/DL (0.0-0.3)
[2018-11-07 00:40] LABS: BLOOD UREA NITROGEN 47 mg/dL (7-18)
--- NOTE | 2018-11-07 01:44 | NUR ---
ED Nurse Note: pt in bed resting. no acute distress noted at this time. will continue to monitor.
[2018-11-07 02:01] VITALS: BP 128/98
--- NOTE | 2018-11-07 03:10 | NUR ---
0310: registration spoke with David- they are moving patients around at [facility], will call us back soon.
[2018-11-07 04:00] VITALS: BP 130/96
--- NOTE | 2018-11-07 04:02 | NUR ---
ED Nurse Note: report given to BONI Angel at [facility] over the phone. pt currently in bed calm. VSS
[2018-11-07 04:32] VITALS: BP 132/90
--- NOTE | 2018-11-07 04:36 | NUR ---
ER DISCHARGE NOTE: [facility]. pt was then transfered to [facility] via [facility] in stable condition.pt is aler x 4. All belongings was taken with pt. no acute ditstree is noted.
== END 2018-11-07 04:32 | disposition short-term general hospital (02) ==
LOC: EDBD 21:49 → EMR 22:31 → EDBEDREQ 11-07 00:57 → EMR 11-07 04:32
DX: R06.02 Shortness of breath (principal); J44.9 Chronic obstructive pulmonary disease, unspecified; I50.9 Heart failure, unspecified; I48.2 Chronic atrial fibrillation; I51.7 Cardiomegaly; R00.0 Tachycardia, unspecified; I11.0 Hypertensive heart disease with heart failure; E78.5 Hyperlipidemia, unspecified; R60.9 Edema, unspecified
CPT/HCPCS: 36415; 71045; 80053; 82248; 82550; 82553; 83880; 84484; 85025; 93005; 94640; 94664; 96374; 96375; 99285; J1885; J1940